=== PATIENT | female | born 1950 | race Hispanic/Latino ===

== ENCOUNTER → 2019-08-27 | Outpatient (CLI) | payer MEDICARE ==
[~2019-08-27] MED LIST: ENALAPRIL MALEA10 MG PO; IOPAMIDOL 370 MG/ML 200 ML INFUS..BTL INJ ONE; PROAIR HFA8.5 G1; SODIUM CHLORIDE 0.9% 50ML 50 ML ONE; Z.0.ADVAIR 250-501 E IH; Z.0.COREG6.25 MG PO; Z.0.GABAPENTIN300 MG PO; Z.0.NEXIUM40 MG PO; Z.0.PRAVASTATIN SOD4 PO
[2019-08-27 10:24] LABS: BLOOD UREA NITROGEN 9 mg/dL (7-26); BUN/CREATININE RATIO 12 (6-25); CREATININE, SERUM 0.75 mg/dL (0.57-1.11); EST GLOMERULAR FILTRATION RATE > 60 ML/MIN (60-)
--- NOTE | 2019-08-27 11:16 | Diagnostic Imaging Report ---
EXAM: CT Chest WITH intravenous contrast 08/27/2019 9:43 AM INDICATION: Shortness of breath, chest pain COMPARISON: Chest radiograph of 10/26/2011 TECHNIQUE: Chest was scanned utilizing a multidetector helical scanner from the lung apex through the level of the adrenal glands after administration of IV contrast. Coronal and sagittal reformations were obtained. Routine protocol was performed. IV CONTRAST: 100mL Isovue 370 RADIATION DOSE: Total DLP: 504 mGy*cm. Dose modulation, iterative reconstruction, and/or weight based adjustment of the mA/kV was utilized to reduce the radiation dose to as low as reasonably achievable. COMPLICATIONS: None FINDINGS: LINES/ TUBES: None. LUNGS AND AIRWAYS: The central airways are patent. No focal consolidation. No pulmonary edema. Airways are normal. PLEURA: The pleural spaces are clear. HEART AND MEDIASTINUM: The thyroid gland is normal. No supraclavicular, axillary, mediastinal, or hilar lymphadenopathy. The heart is not enlarged. No pericardial effusion. Mild scattered atherosclerotic calcifications of the aorta. No central pulmonary embolism. UPPER ABDOMEN: Hepatic dome cyst. Small sliding hiatal hernia. Mild diverticulosis. No acute findings in the upper abdomen. BONES: No acute osseous injury. No suspicious lytic or blastic lesions. SOFT TISSUES: Unremarkable. IMPRESSION: No acute cardiopulmonary process. Signed by: Karin Padgett MD on 08/27/2019 11:12 AM
== END ==
LOC: CT 09:34
PROVIDERS: ATTEND Internal Medicine Critical Care Medicine
DX: J98.11 Atelectasis (principal); R05 Cough; I10 Essential (primary) hypertension
CPT/HCPCS: 36415; 71260; 82565; 84520; Q9967

== ENCOUNTER 2019-09-24 11:42 | Inpatient (IN) | payer MEDICARE ==
[~2019-09-24] VITALS: Ht 154.9 cm; Wt 81.6 kg
[~2019-09-24 11:42] MED LIST changes: -IOPAMIDOL 370 MG/ML 200 ML INFUS..BTL INJ ONE; -SODIUM CHLORIDE 0.9% 50ML 50 ML ONE
--- OUTSIDE RECORDS SUMMARY | 2019-09-24 11:45 | XMS REPORT ---
Author Author [facility] Address Unknown Phone Unavailable Care Team Providers Care Senior Restaurant Manager Name Role Phone KAREN CHERY Unavailable Unavailable Payers Payer Name Policy Type Policy Number Effective Date Expiration Date Problems This patient has no known problems. Allergies, Adverse Reactions, Alerts Allergy Name Allergy Type Status Severity Reaction(s) Onset Date Inactive Date Treating Clinician Comments codeine DA Active U 2019-06-27 00:00:00 codeine DA Active U 2018-10-25 00:00:00 codeine DA Active U 2018-06-30 00:00:00 Medications This patient has no known medications. Results Test Description Test Time Test Comments Text Results Atomic Results Result Comments CT CHEST W 2019-08-27 11:08:00 [facility] [address] [place], [place] [address] Patient Name: RHONA FITCH MR #: [id number] : 1950 Age/Sex: 69/F Req #: [id number] Adm Physician: Ordered by: KAREN CHERY MD Report #: [id number] Location: [place] Room/Bed: Procedure: [id number] CT/CT CHEST W Exam Date: 08/27/19 Exam Time: 1042 REPORT STATUS: Signed EXAM: CT Chest WITH intravenous contrast 08/27/2019 9:43 AM INDICATI ON: Shortness of breath, chest pain COMPARISON: Chest radiograph of 10/26/2011 TECHNIQUE: Chest was scanned utilizing a multidetector helical scanner from the lung apex through the level of the adrenal glands after administration of IV contrast. Coronal and sagittal reformations were obtained. Routine protocol was performed. IV CONTRAST: 100mL Isovue 370 RADIATION DOSE: Total DLP: 504 mGy*cm. Dose modulation, iterative reconstruction, and/or weight based adjustment of the mA/kV was utilized to reduce the radiation dose to as low as reasonably achievable. COMPLICATIONS: None FINDINGS: LINES/ TUBES: None. LUNGS AND AIRWAYS: The central airways are patent. No focal consolidation. No pulmonary edema. Airways are normal. PLEURA: The pleural spaces are clear. HEART AND MEDIASTINUM: The thyroid gland is normal. No supraclavicular, axillary, mediastinal, or hilar lymphadenopathy. The heart is not enlarged. No pericardial effusion. Mild scattered atherosclerotic calcifications of the aorta. No central pulmonary embolism. UPPER ABDOMEN: Hepatic dome cyst. Small sliding hiatal hernia. Mild diverticulosis. No acute findings in the upper abdomen. BONES: No acute osseous injury. No suspicious lytic or blastic lesions. SOFT TISSUES: Unremarkable. IMPRESSION: No acute cardiopulmonary process. Signed by: Narda Nixon MD on 08/27/2019 11:12 AM Dictated By: NARDA NIXON MD 11 Transcribed By: TRACIE on 08/27/191111 COPY TO: KAREN CHERY MD B-TYPE NATRIURETIC PEPTIDE 2019-06-27 13:18:00 B-TYPE NATRIURETIC PEPTIDE (test code=BNP) 68.87 pgram/mL 0-100 BASIC METABOLIC [id number] 12:59:00* Test Item Value Reference Range Comments SODIUM (test code=NA) 131 mmol/L 136-145 POTASSIUM (test code=K) 3.9 mmol/L 3.5-5.1 CHLORIDE (test code=CL) 99.0 mmol/L 98-107 CARBON DIOXIDE (test code=CO2) 24.0 mmol/L 21-32 ANION GAP (test code=GAP) 11.9 10-20 GLUCOSE (test code=GLU) 118 mg/dL 74-106 BLOOD UREA NITROGEN (test code=BUN) 6 mg/dL 7-18 GLOMERULAR FILTRATION RATE (test code=GFR) > 60 mL/min >=60 Estimated GFR by using Modified MDRD formula.Chronic kidney disease is defined as either kidney damageor GFR <60 mL/min/1.73 m2 for >3 months. CREATININE (test code=CREAT) 0.60 mg/dL 0.55-1.02 Note change in reference range due to change in reagent. BUN/CREATININE RATIO (test code=BUN/CREA) 10.0 10-20 CALCIUM (test code=CA) 9.0 mg/dL 8.5-10.1 [id number] 12:59:00* Test Item Value Reference Range Comments TROPONIN-I (test code=TROPI) <0.015 ng/mL 0-0.045 BASIC METABOLIC [id number] 12:48:00* Test Item Value Reference Range Comments SODIUM (test code=NA) 131 mmol/L 136-145 POTASSIUM (test code=K) 3.9 mmol/L 3.5-5.1 CHLORIDE (test code=CL) 99.0 mmol/L 98-107 CARBON DIOXIDE (test code=CO2) mmol/L 21-32 ANION GAP (test code=GAP) 10-20 GLUCOSE (test code=GLU) mg/dL 74-106 BLOOD UREA NITROGEN (test code=BUN) mg/dL 7-18 GLOMERULAR FILTRATION RATE (test code=GFR) mL/min >=60 CREATININE (test code=CREAT) mg/dL 0.55-1.02 BUN/CREATININE RATIO (test code=BUN/CREA) 10-20 CALCIUM (test code=CA) mg/dL 8.5-10.1 [id number] 12:48:00* Test Item Value Reference Range Comments TROPONIN-I (test code=TROPI) ng/mL 0-0.045 CBC W/O [id number] 12:48:00* Test Item Value Reference Range Comments WHITE BLOOD CELL (test code=WBC) 5.0 K/mm3 4.5-12.5 RED BLOOD CELL (test code=RBC) 4.58 mill/mm3 3.7-5.2 HEMOGLOBIN (test code=HGB) 12.3 gram/dL 11.5-15.5 HEMATOCRIT (test code=HCT) 38.2 % 36.0-46.0 MEAN CELL VOLUME (test code=MCV) 83.4 fL 80-98 MEAN CELL HGB (test code=MCH) 26.9 picogram 27.0-33.0 MEAN CELL HGB CONCETRATION (test code=MCHC) 32.2 gram/dL 33.0-36.0 RED CELL DISTRIBUTION WIDTH (test code=RDW) 13.8 % 11.6-16.2 PLATELET COUNT (test code=PLT) 175 K/mm3 150-450 MEAN PLATELET VOLUME (test code=MPV) 10.9 fL 6.7-11.0 - XR CHEST 1 [id number] 12:02:00 FAX: Froylan Lyons DO Juda: B St: REG Name: RHONA ELAM [facility] : [birth year] Age/S: 69/F [address] [facility] Unit #: [id number] Loc: [place] [address] Phys: Froylan Lyons DO Acct: [id number] Dis Date: Status: REG ER PHONE #: [phone] Exam Date: 06/27/2019 1120 FAX #: [phone] Reason: Shortness of Breath EXAMS: CPT CODE: [id number] XR CHEST 1 V 96024 EXAM: Chest x-ray, one view; INFORMATION: Shortness of breath and cough; IMPRESSION: 1. No evidence of pulmonary infiltrates or other signs of active cardiopulmonary disease. 2. No change compared with a study from October 25, 2018; aortic calcifications. Location code: [facility] at 1202 Reported and signed by: Luis Gabriel M.D. CC: Froylan Lyons DO Technologist: BIMAL CORBETT RT (R) Trnscrd Date/Time/By: 06/27/2019 (1202) : By: morgan BAHENAGRW Orig Print D/T: S: 06/27/2019 (1575) P AGE 2 Signed Report GLUBED 2018-10-26 10:20:00* Test Item Value Reference Range Comments GLUBED (test code=GLUBED) 92 mg/dL 74-106 Performed by certified marine service operator at [facility] BASIC METABOLIC [id number] 06:45:00* Test Item Value Reference Range Comments SODIUM (test code=NA) 133 mmol/L 136-145 POTASSIUM (test code=K) 3.9 mmol/L 3.5-5.1 CHLORIDE (test code=CL) 102.0 mmol/L 98-107 CARBON DIOXIDE (test code=CO2) 24.0 mmol/L 21-32 ANION GAP (test code=GAP) 10.9 10-20 GLUCOSE (test code=GLU) 93 mg/dL 74-106 BLOOD UREA NITROGEN (test code=BUN) 10 mg/dL 7-18 GLOMERULAR FILTRATION RATE (test code=GFR) > 60 mL/min >=60 Estimated GFR by using Modified MDRD formula.Chronic kidney disease is defined as either kidney damageor GFR <60 mL/min/1.73 m2 for >3 months. CREATININE (test code=CREAT) 0.60 mg/dL 0.55-1.02 Note change in reference range due to change in reagent. BUN/CREATININE RATIO (test code=BUN/CREA) 16.7 10-20 CALCIUM (test code=CA) 8.0 mg/dL 8.5-10.1 BASIC METABOLIC [id number] 06:42:00* Test Item Value Reference Range Comments SODIUM (test code=NA) 133 mmol/L 136-145 POTASSIUM (test code=K) 3.9 mmol/L 3.5-5.1 CHLORIDE (test code=CL) 102.0 mmol/L 98-107 CARBON DIOXIDE (test code=CO2) mmol/L 21-32 ANION GAP (test code=GAP) 10-20 GLUCOSE (test code=GLU) mg/dL 74-106 BLOOD UREA NITROGEN (test code=BUN) mg/dL 7-18 GLOMERULAR FILTRATION RATE (test code=GFR) mL/min >=60 CREATININE (test code=CREAT) mg/dL 0.55-1.02 BUN/CREATININE RATIO (test code=BUN/CREA) 10-20 CALCIUM (test code=CA) mg/dL 8.5-10.1 CBC W/AUTO [id number] 06:09:00* Test Item Value Reference Range Comments WHITE BLOOD CELL (test code=WBC) 6.8 K/mm3 4.5-12.5 RED BLOOD CELL (test code=RBC) 3.81 mill/mm3 3.7-5.2 HEMOGLOBIN (test code=HGB) 10.4 gram/dL 11.5-15.5 HEMATOCRIT (test code=HCT) 31.6 % 36.0-46.0 MEAN CELL VOLUME (test code=MCV) 82.9 fL 80-98 MEAN CELL HGB (test code=MCH) 27.3 picogram 27.0-33.0 MEAN CELL HGB CONCETRATION (test code=MCHC) 32.9 gram/dL 33.0-36.0 RED CELL DISTRIBUTION WIDTH (test code=RDW) 13.4 % 11.6-16.2 RED CELL DISTRIBUTION WIDTH SD (test code=RDW-SD) 40.7 fL 37.0-51.0 PLATELET COUNT (test code=PLT) 169 K/mm3 150-450 MEAN PLATELET VOLUME (test code=MPV) 11.2 fL 6.7-11.0 NEUTROPHIL % (test code=NT%) 59.2 % 39.0-69.0 IMMATURE GRANULOCYTE % (test code=IG%) 0.1 % 0.0-5.0 LYMPHOCYTE % (test code=LY%) 27.3 % 25.0-55.0 MONOCYTE % (test code=MO%) 12.4 % 0.0-10.0 EOSINOPHIL % (test code=EO%) 0.4 % 0.0-5.0 BASOPHIL % (test code=BA%) 0.6 % 0.0-1.0 NUCLEATED RBC % (test code=NRBC%) 0.0 % 0-0 NEUTROPHIL # (test code=NT#) 4.04 K/mm3 1.8-7.7 IMMATURE GRANULOCYTE # (test code=IG#) 0.01 x10 3/uL 0-0.03 LYMPHOCYTE # (test code=LY#) 1.87 K/mm3 1.0-5.0 MONOCYTE # (test code=MO#) 0.85 K/mm3 0-0.8 EOSINOPHIL # (test code=EO#) 0.03 K/mm3 0.0-0.5 BASOPHIL # (test code=BA#) 0.04 K/mm3 0.0-0.2 NUCLEATED RBC # (test code=NRBC#) 0.00 K/mm3 0.0-0.1 [id number] 20:24:00* Test Item Value Reference Range Comments GLUBED (test code=GLUBED) 134 mg/dL 74-106 Performed by certified marine service operator at [facility] [id number] 16:32:00* Test Item Value Reference Range Comments GLUBED (test code=GLUBED) 88 mg/dL 74-106 Performed by certified marine service operator at [facility] [id number] 11:10:00* Test Item Value Reference Range Comments GLUBED (test code=GLUBED) 250 mg/dL 74-106 Performed by certified marine service operator at [facility] [id number] 07:52:00* Test Item Value Reference Range Comments GLUBED (test code=GLUBED) 71 mg/dL 74-106 Performed by certified marine service operator at [facility] [id number] 07:38:00* Test Item Value Reference Range Comments GLUBED (test code=GLUBED) 188 mg/dL 74-106 Performed by certified marine service operator at [facility] B-TYPE NATRIURETIC [id number] 03:34:00* Test Item Value Reference Range Comments B-TYPE NATRIURETIC PEPTIDE (test code=BNP) 69.42 pgram/mL 0-100 URINALYSIS [id number] 02:49:00* Test Item Value Reference Range Comments UA COLOR (test code=COLU) Light-Yellow YELLOW UA APPEARANCE (test code=APPU) CLEAR CLEAR UA GLUCOSE DIPSTICK (test code=DGLUU) NEGATIVE mg/dL NEGATIVE UA BILIRUBIN DIPSTICK (test code=BILU) NEGATIVE mg/dL NEGATIVE UA KETONE DIPSTICK (test code=KETU) NEGATIVE mg/dL NEGATIVE UA SPECIFIC GRAVITY (test code=SGU) 1.012 1.001-1.035 UA BLOOD DIPSTICK (test code=MELANI) Negative mg/dL NEGATIVE UA PH DIPSTICK (test code=DARÍO) 8.0 5.0-8.0 UA PROTEIN DIPSTICK (test code=PROU) NEGATIVE mg/dL NEGATIVE UA UROBILINIOGEN DIPSTICK (test code=URO) Normal mg/dL NEGATIVE UA NITRITE DIPSTICK (test code=ABEL) NEGATIVE NEGATIVE UA LEUKOCYTE ESTERASE W REFLEX (test code=LEUUR) NEGATIVE Tomi/uL NEGATIVE UA WBC (test code=WBCU) 0-5 per HPF 0-5 UA RBC (test code=RBCU) 0-2 #/HPF 0-5 UA EPITHELIAL CELLS (test code=EPIU) FEW per HPF FEW UA BACTERIA (test code=BACU) FEW #/HPF NONE UA HYALINE CAST (test code=HYALU) 0-2 #/LPF 0-5 UA MUCUS (test code=MUCU) FEW #/LPF FEW Urine Source? Clean CatchBASIC METABOLIC [id number] 02:37:00* Test Item Value Reference Range Comments SODIUM (test code=NA) 126 mmol/L 136-145 POTASSIUM (test code=K) 3.6 mmol/L 3.5-5.1 CHLORIDE (test code=CL) 92.0 mmol/L 98-107 CARBON DIOXIDE (test code=CO2) 25.0 mmol/L 21-32 ANION GAP (test code=GAP) 12.6 10-20 GLUCOSE (test code=GLU) 108 mg/dL 74-106 BLOOD UREA NITROGEN (test code=BUN) 7 mg/dL 7-18 GLOMERULAR FILTRATION RATE (test code=GFR) > 60 mL/min >=60 Estimated GFR by using Modified MDRD formula.Chronic kidney disease is defined as either kidney damageor GFR <60 mL/min/1.73 m2 for >3 months. CREATININE (test code=CREAT) 0.60 mg/dL 0.55-1.02 Note change in reference range due to change in reagent. BUN/CREATININE RATIO (test code=BUN/CREA) 11.7 10-20 CALCIUM (test code=CA) 8.8 mg/dL 8.5-10.1 HEPATIC FUNCTION [id number] 02:37:00* Test Item Value Reference Range Comments TOTAL PROTEIN (test code=PROT) 7.8 gram/dL 6.4-8.2 ALBUMIN (test code=ALB) 3.8 g/dL 3.4-5.0 GLOBULIN (test code=GLOB) 4.0 gram/dL 2.7-4.2 ALBUMIN/GLOBULIN RATIO (test code=A/G) 1.0 0.75-1.50 BILIRUBIN TOTAL (test code=BILT) 0.40 mg/dL 0.0-1.0 BILIRUBIN DIRECT (test code=BILD) 0.16 mg/dL 0.0-0.20 SGOT/AST (test code=AST) 23 IUnit/L 15-37 SGPT/ALT (test code=ALT) 33 IUnit/L 12-78 ALKALINE PHOSPHATASE TOTAL (test code=ALKP) 118 IUnit/L 45-117 Note change in reference range due to change in reagent. [id number] 02:37:00* Test Item Value Reference Range Comments LIPASE (test code=LIP) 131 U/L 73.0-393.0 [id number] 02:37:00* Test Item Value Reference Range Comments MAGNESIUM (test code=MAG) 1.8 mg/dL 1.8-2.4 [id number] 02:37:00* Test Item Value Reference Range Comments TROPONIN-I (test code=TROPI) <0.015 ng/mL 0-0.045 LACTIC [id number] 02:37:00* Test Item Value Reference Range Comments LACTIC ACID (test code=LACT) 1.0 mmol/L 0.4-1.9 PROCALCITONIN (PCT)2018-10-25 02:37:00* Test Item Value Reference Range Comments PROCALCITONIN (PCT) (test code=PROCAL) < 0.05 ng/ml Concentration Interpretation (ng/mL) <0.51 Sepsis is not likely. Local bacterial infection is possible. (LOW RISK for progression to Sepsis) 0.51 - 2.00 Sepsis is possible, but other conditions are known to elevate PCT as well. (MODERATE RISK for progression to Sepsis) > 2.00 Sepsis is likely, unless other causes are known. (HIGH RISK for progression to Severe Sepsis or Septic Shock) 10.00 High likelihood of Severe Sepsis or Septic or higher Shock. *Increased PCT levels may not always be related to systemic bacterial infection.*Low PCT levels do not automatically exclude the presence of bacterial infection.*All results should be interpreted taking into account the patients history. - XR CHEST 1 [id number] 02:19:00 Juda: B St: REG Name: RHONA ELAM [facility] : [birth year] Age/S: 68/F [address] [facility] Unit #: [id number] Loc: [place] [address] Phys: Tish Cortes MD Acct: [id number] Dis Date: Status: REG ER PHONE #: [phone] Exam Date: 10/25/2018 0153 FAX #: [phone] Reason: CHEST PAIN EXAMS: CPT CODE: [id number] XR CHEST 1 V 15982 EXAM: - XR CHEST 1 V HISTORY: Chest pain. COMPARISON: December 22, 2009. FIN DINGS: Single AP view of the chest is provided. Heart size a nd vascularity are within normal limits. The lungs are clear of focal con solidation. No effusion, pneumothorax, or acute osseous abnormality. There is no significant change compared to prior exam. IMPRESS ION: No radiographic evidence of acute cardiopulmonary process. at 0219 Reported and signed by: Vasiliy Rubio MD CC: Technologist: Joya Kern Trnscrd Date/Time/By: 10/25/2018 (218) : By: [email or web address] Orig Print D/T: S: 10/25/2018 (0224) PAGE 1 Signed Report CBC W/O [id number] 02:12:00* Test Item Value Reference Range Comments WHITE BLOOD CELL (test code=WBC) 5.7 K/mm3 4.5-12.5 RED BLOOD CELL (test code=RBC) 4.39 mill/mm3 3.7-5.2 HEMOGLOBIN (test code=HGB) 12.0 gram/dL 11.5-15.5 HEMATOCRIT (test code=HCT) 36.1 % 36.0-46.0 MEAN CELL VOLUME (test code=MCV) 82.2 fL 80-98 MEAN CELL HGB (test code=MCH) 27.3 picogram 27.0-33.0 MEAN CELL HGB CONCETRATION (test code=MCHC) 33.2 gram/dL 33.0-36.0 RED CELL DISTRIBUTION WIDTH (test code=RDW) 12.9 % 11.6-16.2 PLATELET COUNT (test code=PLT) 185 K/mm3 150-450 MEAN PLATELET VOLUME (test code=MPV) 11.8 fL 6.7-11.0 CBC W/O [id number] 02:11:00* Test Item Value Reference Range Comments WHITE BLOOD CELL (test code=WBC) K/mm3 4.5-12.5 RED BLOOD CELL (test code=RBC) mill/mm3 3.7-5.2 HEMOGLOBIN (test code=HGB) 12.0 gram/dL 11.5-15.5 HEMATOCRIT (test code=HCT) 36.1 % 36.0-46.0 MEAN CELL VOLUME (test code=MCV) fL 80-98 MEAN CELL HGB (test code=MCH) picogram 27.0-33.0 MEAN CELL HGB CONCETRATION (test code=MCHC) gram/dL 33.0-36.0 RED CELL DISTRIBUTION WIDTH (test code=RDW) % 11.6-16.2 PLATELET COUNT (test code=PLT) K/mm3 150-450 MEAN PLATELET VOLUME (test code=MPV) fL 6.7-11.0 [id number] 13:48:00 RUN DATE: 07/03/18 [place] - Lab PAGE 1 RUN TIME: 1348 Specimen Inqui ry RUN USER: INTERFACE PATIENT: RHONA FITCH ACCT #: [id number] LOC: G U #: [id number] AGE/SX: 68/F ROOM: RE07/01/18[facility] DR: Boni Boo MD : 52 BED: DIS: STATUS: JIGNESH FUNG TLOC: SPEC #: [id number] RECD: 07/02/18 STATUS: AYAZ REQ #: [id number] CARLOS: 07/01/18- [facility] DR: Boni Boo MD ENTERED: 07/02/18 SP TYPE: STOMACH OTHR DR: Jesse Pedersen MD ORDERED: GROSS COPIES TO: Boni Boo MD [address] [address] Jesse Pedersen MD [address] [place] [address] PROCEDURES: GROSS (07/03/18-112) TISSU ES: 1. ANTRAL BIOPSY - H-PYLORI 2. BODY BIOPSY OF STOMACH CLINICAL HISTORY COLLECTION DATE: 07/01/18 [facility], VOMITING FINAL DIAGNOSIS Gastric antrum, biopsy: COMPATIBLE WITH MILD REACTIVE GASTROPATHY NO AREAS OF MUCOSAL EROSION/ULCERATION NEGATIVE FOR IN TESTINAL METAPLASIA NEGATIVE FOR HELICOBACTER ORGANISMS NEGATIVE F OR MALIGNANCY Gastric body, biopsy: MILD CHRONIC GASTRITIS WITHOUT ACTIVITY NEGATIVE FOR INTESTINAL METAPLASIA NEGATIVE FOR HELICOBAC TER ORGANISMS NEGATIVE FOR MALIGNANCY RRB/sm D [phone] CONTINUED ON NEXT PAGE R UN DATE: 07/03/18 [place] [facility] PAGE 2 RUN TIME: 1348 Specimen Inquiry RUN USER: INTERFACE SPEC #: [id number] PATIENT: RHONA FITCH #[id number] (Continued) MACROSCOPIC The first specimen is received in formalin, labeled with the patient's name, identified as "antrum bx", and consists of chawla biopsy tissue measuring 0.2 cm in diameter , submitted as (1) for H E and Giemsa stains. The second specimen is recei toni in formalin, labeled with the patient's name, identified as "body of stoma ch", and consists of chawla biopsy tissue measuring 0.25 cm, submitted as (2) for H E and Giemsa stains. GROSS PERFORMED AT [facility] [address] [place] [address] ([phone] MICROSCOPIC MICROSCOPIC PERFORMED AT [facility] All of the stains, including any controls performed, stain appropriately. [address] [address] (p)[phone] PERFORMING SITE Diagnosis performed at: [facility] MAILE Estrada [address] [place], [place] [id number] - Signed SIGNATURE ON FILE Reynaldo Morris 0 07/03/18 1348 END O F REPORT
[2019-09-24] MEDS ORDERED: DIATRIZOATE MEGL/DIATRIZOA SOD 30 ML BTL PO ONE (12:57)
[2019-09-24] MEDS ORDERED: ONDANSETRON HCL INJ 2MG/ML 2ML 2 MG/ML VIAL IV STA ×2 (13:40→15:07)
[2019-09-24 13:44] LABS: BASOPHILS % 0.7 % (0.0-1.0); EOSINOPHILS % 0.7 % (0.0-6.0); HEMATOCRIT 39.3 % (34.2-44.1); HEMOGLOBIN 13.5 g/dL (12.0-16.0); LYMPHOCYTES # (AUTO) 0.9 (1.0-3.2); LYMPHOCYTES % 21.7 % (18.0-39.1); MEAN CORPUSCULAR HEMOGLOBIN 27.8 pg (28-32); MEAN CORPUSCULAR HGB CONC 34.4 g/dL (31-35); MONOCYTES # (AUTO) 0.6 (0.2-0.8); MONOCYTES % 12.8 % (4.4-11.3); NEUTROPHILS # (AUTO) 2.7 (2.1-6.9); NEUTROPHILS % 63.9 % (38.7-80.0); PLATELET COUNT 194 x10e3/uL (140-360); RED BLOOD COUNT 4.85 x10e6/uL (3.6-5.1); RED CELL DISTRIBUTION WIDTH 14.3 % (11.7-14.4)
[2019-09-24] MEDS ORDERED: MORPHINE SULFATE INJ 4 MG/ML INJ 1ML IV ONE (13:45)
[2019-09-24 14:05] LABS: ALANINE AMINOTRANSFERASE 422 IU/L (0-55); ALBUMIN 4.4 g/dL (3.5-5.0); ALBUMIN/GLOBULIN RATIO 1.2 (0.8-2.0); ALKALINE PHOSPHATASE 150 IU/L (40-150); ANION GAP 13.5 mmol/L (8-16); BLOOD UREA NITROGEN 5 mg/dL (7-26); BUN/CREATININE RATIO 6 (6-25); CALCIUM 9.3 mg/dL (8.4-10.2); CARBON DIOXIDE 24 mmol/L (22-29); CHLORIDE 90 mmol/L (98-107); CREATININE, SERUM 0.77 mg/dL (0.57-1.11); EST GLOMERULAR FILTRATION RATE > 60 ML/MIN (60-); GLUCOSE 100 mg/dL (74-118); POTASSIUM 3.5 mmol/L (3.5-5.1); SODIUM 124 mmol/L (136-145)
[2019-09-24 14:06] LABS: CLARITY,URINE CLEAR (CLEAR); COLOR,URINE YELLOW (YELLOW)
[2019-09-24 14:07] LABS: BILIRUBIN,URINE NEGATIVE (NEGATIVE); KETONES,URINE 2+ (NEGATIVE); LEUKOCYTE ESTERASE ,URINE NEGATIVE (NEGATIVE); NITRITE,URINE NEGATIVE (NEGATIVE); PROTEIN,URINE DIPSTICK NEGATIVE (NEGATIVE); URINE UROBILINOGEN 0.2 mg/dL (0.2 - 1)
[2019-09-24 14:15] LABS: BACTERIA,URINE FEW /HPF; EPITHELIAL CELLS,URINE FEW /LPF
--- NOTE | 2019-09-24 16:25 | Diagnostic Imaging Report ---
CT of the chest, abdomen and pelvis, with contrast. History: Abdominal pain, shortness of breath. Comparison: CT chest with contrast from 08/27/2019. Technique: Multidetector CT scanning of the chest, abdomen and pelvis was performed after intravenous and oral administration of contrast. Coronal and sagittal multiplanar reformations were obtained. RADIATION DOSE: Total DLP: 930.43 mGy*cm Dose modulation, iterative reconstruction, and/or weight based adjustment of the mA/kV was utilized to reduce the radiation dose to as low as reasonably achievable. FINDINGS: The thyroid and remaining visualized structures within the base of the neck demonstrate no significant abnormalities. The thoracic aorta is normal course and caliber with mild atherosclerotic calcifications. The heart is not enlarged. No abnormal pericardial fluid is present. There is no abnormal axillary, mediastinal, or hilar lymph node enlargement. The trachea and proximal airways are patent. Examination of the lungs demonstrate no evidence for consolidation, pneumothorax, mass, suspicious nodule, or pleural effusion. The liver is normal in size and attenuation. A stable cyst is identified within the hepatic dome. The gallbladder is unremarkable. There is no biliary ductal dilatation. The stomach, spleen, pancreas, and bilateral adrenal glands are unremarkable. The kidneys are normal in size and location and enhance symmetrically. Mild cortical scarring noted along the right kidney. There is no evidence for hydronephrosis. No ureteral dilatation or stone is appreciated. There is a large cystic structure identified within the pelvis measuring 9.9 x 13.1 x 10.3 cm. An apparent enhancing nodule is present along the left posterior inferior wall of this cystic lesion. This lesion abuts the urinary bladder and impresses upon the urinary bladder. Lesion also abuts the bilateral adnexa. The abdominal aorta is normal course and caliber with mild left are sclerotic calcifications. The IVC is unremarkable. The visualized loops of small and large bowel demonstrate no evidence of obstruction or inflammation. There is a small fat-containing umbilical hernia present. The appendix is visualized and appears unremarkable. Scattered diverticula are noted within the colon without evidence for acute diverticulitis. There is no ascites or intraperitoneal free air. No abnormally enlarged lymph nodes are identified within the abdomen or pelvis. The osseous structures to the straight no evidence for acute fracture or destructive process. The extra peritoneal soft tissues are unremarkable. IMPRESSION: Large cystic mass identified within the pelvis measuring up to 13.1 cm containing a enhancing nodule as detailed above. This lesion abuts the uterus, adnexa and the urinary bladder. Recommend VIRTUAL CLASSROOM MANAGER/surgical consultation. Alternatively, pelvic MRI may provide further characterization. Diverticulosis without evidence for acute diverticulitis. No acute intrathoracic process identified. Signed by: Dr. Emile Aguirre MD on 09/24/2019 4:21 PM
[2019-09-24] MEDS ORDERED: SODIUM CHLORIDE 0.9% 1000ML 1,000 ML IV STA (16:41)
[2019-09-24] MEDS ORDERED: KETOROLAC TROMETHAMINE 30 MG/ML VIAL IV STA (16:41)
[2019-09-24] MEDS ORDERED: METOCLOPRAMIDE HCL 10 MG/2ML VIAL ONE (18:42)
[2019-09-24] MEDS ORDERED: SODIUM CHLORIDE 0.9% 50ML 50 ML ONE (18:44)
[2019-09-24] MEDS ORDERED: IOPAMIDOL 370 MG/ML 200 ML INFUS..BTL INJ ONE (18:44)
[2019-09-24] MEDS ORDERED: METOCLOPRAMIDE HCL 10 MG/2ML VIAL IM ONE (18:45)
--- NOTE | 2019-09-24 18:45 | NUR ---
report given to Richard NICHOLSON
[2019-09-24] MEDS ORDERED: METFORMIN HCL500 MG PO (19:04)
[2019-09-24] MEDS ORDERED: OMEPRAZOLE40 MG PO (19:04)
[2019-09-24] MEDS: PANTOPRAZOLE 40 MG 10ML VIAL IV SCH (19:55)
[2019-09-24] MEDS: ONDANSETRON HCL INJ 2MG/ML 2ML 2 MG/ML VIAL IV PRN (19:55)
[2019-09-24] MEDS: SODIUM CHLORIDE 0.9% 1000ML 1,000 ML IV SCH (19:55)
[2019-09-24] MEDS ORDERED: SODIUM CHLORIDE 0.9% 1000ML 1,000 ML ONE (19:58)
[2019-09-24] MEDS ORDERED: PANTOPRAZOLE 40 MG 10ML VIAL ONE (19:59)
[2019-09-24] MEDS ORDERED: ONDANSETRON HCL INJ 2MG/ML 2ML 2 MG/ML VIAL ONE (20:00)
--- NOTE | 2019-09-24 20:46 | NUR ---
report to pam guan. pt placed on telemetry box #22 by sundeep stewart.
[2019-09-24 22:15] VITALS: BP 135/70
[2019-09-24 22:31] VITALS: BP 135/70
[2019-09-25 05:21] LABS: BASOPHILS % 0.4 % (0.0-1.0); EOSINOPHILS % 0.4 % (0.0-6.0); HEMATOCRIT 33.4 % (34.2-44.1); HEMOGLOBIN 11.5 g/dL (12.0-16.0); LYMPHOCYTES # (AUTO) 1.2 (1.0-3.2); LYMPHOCYTES % 25.6 % (18.0-39.1); MEAN CORPUSCULAR HEMOGLOBIN 27.7 pg (28-32); MEAN CORPUSCULAR HGB CONC 34.4 g/dL (31-35); MEAN CORPUSCULAR VOLUME 80.5 fL (81-99); MONOCYTES # (AUTO) 0.8 (0.2-0.8); MONOCYTES % 16.9 % (4.4-11.3); NEUTROPHILS # (AUTO) 2.7 (2.1-6.9); NEUTROPHILS % 56.5 % (38.7-80.0); PLATELET COUNT 185 x10e3/uL (140-360); RED BLOOD COUNT 4.15 x10e6/uL (3.6-5.1); RED CELL DISTRIBUTION WIDTH 14.2 % (11.7-14.4)
[2019-09-25 05:45] LABS: ANION GAP 10.3 mmol/L (8-16); BLOOD UREA NITROGEN 5 mg/dL (7-26); BUN/CREATININE RATIO 7 (6-25); CALCIUM 8.3 mg/dL (8.4-10.2); CARBON DIOXIDE 24 mmol/L (22-29); CHLORIDE 96 mmol/L (98-107); CREATININE, SERUM 0.68 mg/dL (0.57-1.11); EST GLOMERULAR FILTRATION RATE > 60 ML/MIN (60-); GLUCOSE 99 mg/dL (74-118); POTASSIUM 4.3 mmol/L (3.5-5.1); SODIUM 126 mmol/L (136-145)
[2019-09-25] MEDS: SODIUM CHLORIDE 0.9% 1000ML 1,000 ML IV SCH ×2 (06:29→19:11)
--- NOTE | 2019-09-25 07:00 | NUR ---
RECEIVED REPORT, WALKING ROUNDS PERFORMED, PT RESTING QUIETLY IN BED, NO APPARENT DISTRESS AT THIS TIME
[2019-09-25 08:24] VITALS: BP 130/62
[2019-09-25 08:43] VITALS: BP 130/62
[2019-09-25] MEDS: PANTOPRAZOLE 40 MG 10ML VIAL IV SCH (09:06)
--- NOTE | 2019-09-25 10:10 | NUR ---
Pt. expressed no spiritual or emotional concerns at this time. Supervisor provided empathic listening and information on how to reach surety bond agent, if needed. No need to follow at this time. RITIKA TRENT Supervisor Spiritual Care Department O: [phone]
[2019-09-25] MEDS: ONDANSETRON HCL INJ 2MG/ML 2ML 2 MG/ML VIAL IV PRN (11:46)
[2019-09-25] MEDS: ACETAMINOPHEN 325 MG TAB PO PRN (11:46)
[2019-09-25] MEDS ORDERED: GADOBENATE DIMEGLUMINE 1 ML IV ONE (12:18)
[2019-09-25] MEDS ORDERED: SODIUM CHLORIDE 0.9% 100 ML ONE (12:18)
--- NOTE | 2019-09-25 12:49 | History and Physical ---
CHIEF COMPLAINT: This is a 69-year-old female patient presented to the emergency room with a complaint of vomiting, abdominal pain, headache and dizziness. HISTORY OF PRESENT ILLNESS: Ms. Nhung Lloyd is a 69-year-old female patient, who presented to the emergency room with a complaint of dizziness, vomiting, lower abdominal pain, headache, and weakness. The patient was evaluated in the emergency room and the patient was found to have pelvic mass and hyponatremia. ER physician had talked to the Special Effects Designer chief information security officer, and the patient was advised to have outpatient followup plan. The patient was continued to have vomiting and the patient has low sodium. The patient was advised to come back and admitted. ALLERGIES: THE PATIENT IS ALLERGIC TO CODEINE. THE PATIENT HAS A HISTORY OF DIABETES MELLITUS, HYPERTENSION, ANXIETY. PAST MEDICAL HISTORY: Hypertension, diabetes mellitus, anxiety, depression, bronchial asthma. MEDICATIONS: See from the list. SOCIAL HISTORY: Denies smoking. Denies using alcohol. FAMILY HISTORY: Diabetes mellitus, hypertension. REVIEW OF SYSTEMS: A detailed multisystem review of system examination has been done. PHYSICAL EXAMINATION: GENERAL: She is a middle-aged female patient lying in the bed, not in any acute. VITAL SIGNS: Temperature 99.2, pulse rate 61, blood pressure 130/62, respiration rate 22, O2 saturation 98%. HEENT: Normocephalic, atraumatic. No JVD. No lymphadenopathy. LUNGS: Bilateral equal air entry. No rales, no rhonchi. HEART: S1, S2. Regular. No murmur. No gallop. ABDOMEN: Soft. Bowel sounds present. Mild lower abdominal tenderness present. EXTREMITIES: No edema. ADMITTING IMPRESSION AND DIAGNOSES: Hyponatremia, gastroenteritis, pelvic mass, diabetes mellitus, hypertension, bronchial asthma, obesity. PLAN: The patient was admitted with above diagnoses. We will treat patient with IV fluids and the IV Zofran and we will obtain pelvic MRI and also Special Effects Designer consultation and we will correct patient's sodium slowly. Jesse Pedersen MD VMP/MODL /[id number]
--- NOTE | 2019-09-25 13:37 | NUR ---
spoke with dr jamey ring, pt states that she is too claustrophobic to do mri without some medication, order recieved for ativan, pt is being brought back to the room
[2019-09-25] MEDS: LORAZEPAM 1 MG TAB PO PRN (13:49)
[2019-09-25 13:59] VITALS: BP 131/69
--- NOTE | 2019-09-25 15:59 | NUR ---
pt back from MRI, vs stable, pt states that she is a little weak, explained that it could be due to the medication she received for mri, call light within reach
[2019-09-25 16:38] VITALS: BP 143/65
--- NOTE | 2019-09-25 19:28 | NUR ---
received report from day nurse. patient id resting comfortably in bed. bed is in lowest position and call light is within reach. Denies pain or discomfort. will continue to monitor patient.
[2019-09-25 20:00] VITALS: BP 105/61
[2019-09-25] MEDS: SALMETEROL/FLUTICASONE 250/50 INH SCH (20:50)
[2019-09-25 23:31] VITALS: BP 105/61
[2019-09-26] VITALS (8 sets, daily range): BP systolic 113–141; BP diastolic 60–76
[2019-09-26] MEDS: SODIUM CHLORIDE 0.9% 1000ML 1,000 ML IV SCH (02:21)
[2019-09-26 06:06] LABS: BASOPHILS # (AUTO) 0.1 (0.0-0.1); BASOPHILS % 1.3 % (0.0-1.0); EOSINOPHILS # (AUTO) 0.1 (0.0-0.4); EOSINOPHILS % 1.8 % (0.0-6.0); HEMATOCRIT 36.2 % (34.2-44.1); LYMPHOCYTES # (AUTO) 1.5 (1.0-3.2); LYMPHOCYTES % 37.3 % (18.0-39.1); MEAN CORPUSCULAR HEMOGLOBIN 27.3 pg (28-32); MEAN CORPUSCULAR HGB CONC 33.1 g/dL (31-35); MEAN CORPUSCULAR VOLUME 82.5 fL (81-99); MONOCYTES # (AUTO) 0.7 (0.2-0.8); MONOCYTES % 17.4 % (4.4-11.3); NEUTROPHILS # (AUTO) 1.7 (2.1-6.9); NEUTROPHILS % 41.9 % (38.7-80.0); PLATELET COUNT 189 x10e3/uL (140-360); RED BLOOD COUNT 4.39 x10e6/uL (3.6-5.1); RED CELL DISTRIBUTION WIDTH 15.1 % (11.7-14.4)
[2019-09-26 06:35] LABS: ALANINE AMINOTRANSFERASE 267 IU/L (0-55); ALBUMIN 3.7 g/dL (3.5-5.0); ALBUMIN/GLOBULIN RATIO 1.3 (0.8-2.0); ALKALINE PHOSPHATASE 114 IU/L (40-150); BLOOD UREA NITROGEN < 5 mg/dL (7-26); CALCIUM 8.4 mg/dL (8.4-10.2); CARBON DIOXIDE 23 mmol/L (22-29); CHLORIDE 106 mmol/L (98-107); CREATININE, SERUM 0.63 mg/dL (0.57-1.11); EST GLOMERULAR FILTRATION RATE > 60 ML/MIN (60-); GLUCOSE 93 mg/dL (74-118); SODIUM 135 mmol/L (136-145)
[2019-09-26 06:36] LABS: BUN/CREATININE RATIO 8 (6-25)
--- NOTE | 2019-09-26 07:00 | NUR ---
report received, walking rounds performed, pt resting quietly in bed
[2019-09-26] MEDS: SALMETEROL/FLUTICASONE 250/50 INH SCH ×2 (07:04→21:15)
--- NOTE | 2019-09-26 07:09 | NUR ---
REPORT GIVEN TO DAY NURSE. PATIENT IS RESTING COMFORTABLY IN THE BED. BED IS IN THE LOWEST POSITION AND CALL LIGHT IS WITHIN REACH.
[2019-09-26] MEDS: PANTOPRAZOLE SOD 40 MG TABEC PO SCH (08:44)
[2019-09-26] MEDS: ENALAPRIL MALEATE 10 MG TAB PO SCH (08:44)
--- NOTE | 2019-09-26 16:19 | NUR ---
pt took a shower, iv was wrapped and tele was replaced
[2019-09-26] MEDS ORDERED: ONDANSETRON HCL 4 MG ORAL DISINTEGRATING TAB PO PRN (17:00)
[2019-09-26] MEDS: DOCUSATE SODIUM 100 MG CAP PO PRN (17:07)
[2019-09-26] MEDS ORDERED: DOCUSATE SODIUM 100 MG CAP ONE (17:14)
--- NOTE | 2019-09-26 17:40 | Progress Note ---
DATE: 09/26/2019 Medicine Progress Note I am covering for Dr. Candelaria Pedersen SUBJECTIVE: The patient was admitted for underlying lightheadedness and dizziness found to be hyponatremic. Simultaneously on the CT abdomen and pelvis, found to have a pelvic mass, which SKEIN BANDER was consulted. The patient is currently is still complaining of some dizziness and lightheadedness during my evaluation. SKEIN BANDER came and evaluated the patient, but I do not see his consultation note at this time, but he did tell the nursing staff, the patient can go home, but she is currently not ready at this time. PHYSICAL EXAMINATION: VITAL SIGNS: Temperature is 98.8, pulse 60, respiratory rate is 20, blood pressure 118/72, pulse ox 98% on room air. GENERAL: No acute distress. Alert and oriented x3. Cooperative on examination. HEENT: Head is normocephalic and atraumatic. Eyes; pupils are equal, round, and reactive to light bilaterally. Extraocular movements intact bilaterally. Throat; no evidence of erythema or exudates in the posterior pharynx. She has poor dentition. NECK: Supple. Good range of motion. PULMONARY: Clear to auscultation bilaterally. No wheezing, rales, or rhonchi. No crackles appreciated. CARDIOVASCULAR: Positive S1 and S2. No murmurs, rubs, or gallops appreciated. ABDOMEN: Soft, nondistended, and nontender to palpation. Bowel sounds are present. MUSCULOSKELETAL: Strength is 5/5 throughout. No evidence of any muscle deficits on examination. No weakness appreciated. NEUROLOGIC: Cranial nerves 2 through 12 grossly intact. No evidence of any neurological deficits on exam. SKIN: Intact. Warm to touch. Good cap refill. PSYCHIATRIC: Normal affect and mood. EXTREMITIES: No edema. Good range of motion throughout. LABORATORY FINDINGS: Show white count 3.9, hemoglobin 12, hematocrit 36, platelets of 189. Chemistry; sodium 135, it is up from 126, but the rate was appropriately increased. Potassium 4, chloride 106, bicarb 23, anion gap is 10, BUN is 5, creatinine is 0.63, glucose 93. Her total bilirubin was 0.7, AST 146, ALT 267 has been downtrending, alkaline phosphatase 114, albumin 3.7. CA-125 pending. Urinalysis negative. Microbiology none. IMAGING STUDIES: CT chest, abdomen and pelvis. The only result had stated, the pelvic mass noted. MRI of the pelvis and abdomen are pending final read. IMPRESSION: 1. Lightheadedness, dizziness secondary to hyponatremia. 2. Abdominal pain secondary to pelvic mass. PLAN: At this time, she reports her nausea and vomiting are resolved. Pelvic mass was still pending MRI of the pelvis and abdomen. Wood Router came and saw with the patient and he cleared the patient from his standpoint, but I do not see a note as of yet. Tylenol No.3 was written in the chart. I am still waiting on the read on the MRIs. As for her sodium, it is appropriately corrected. I am going to go ahead and stop the IV fluids. Get a.m. labs. Encourage ambulation. Regular diet. If she does well tomorrow and has been cleared by SKEIN BANDER. Her CA-125 is pending. MD LINWOOD Yun/ZAIN /[id number]
[2019-09-26] MEDS: ACETAMINOPHEN 325 MG TAB PO PRN (22:46)
[2019-09-26] MEDS: ONDANSETRON HCL INJ 2MG/ML 2ML 2 MG/ML VIAL IV PRN (22:46)
[2019-09-27] VITALS (9 sets, daily range): BP systolic 99–148; BP diastolic 56–85
[2019-09-27] MEDS: SALMETEROL/FLUTICASONE 250/50 INH SCH ×2 (06:03→19:50)
[2019-09-27 06:13] LABS: BASOPHILS % 1.1 % (0.0-1.0); EOSINOPHILS # (AUTO) 0.2 (0.0-0.4); EOSINOPHILS % 4.4 % (0.0-6.0); HEMATOCRIT 36.2 % (34.2-44.1); LYMPHOCYTES # (AUTO) 1.4 (1.0-3.2); LYMPHOCYTES % 38.8 % (18.0-39.1); MEAN CORPUSCULAR HEMOGLOBIN 27.5 pg (28-32); MEAN CORPUSCULAR HGB CONC 33.1 g/dL (31-35); MONOCYTES # (AUTO) 0.6 (0.2-0.8); MONOCYTES % 16.5 % (4.4-11.3); NEUTROPHILS # (AUTO) 1.4 (2.1-6.9); NEUTROPHILS % 39.2 % (38.7-80.0); PLATELET COUNT 168 x10e3/uL (140-360); RED BLOOD COUNT 4.36 x10e6/uL (3.6-5.1); RED CELL DISTRIBUTION WIDTH 15.3 % (11.7-14.4)
--- NOTE | 2019-09-27 06:33 | NUR ---
patient is resting in the bed, bed is in the lowest position and call light is within reach. No signs of pain or discomfort noted.
[2019-09-27 06:47] LABS: ANION GAP 9.9 mmol/L (8-16); BLOOD UREA NITROGEN < 5 mg/dL (7-26); CALCIUM 8.7 mg/dL (8.4-10.2); CARBON DIOXIDE 25 mmol/L (22-29); CHLORIDE 103 mmol/L (98-107); CREATININE, SERUM 0.63 mg/dL (0.57-1.11); EST GLOMERULAR FILTRATION RATE > 60 ML/MIN (60-); GLUCOSE 91 mg/dL (74-118); POTASSIUM 3.9 mmol/L (3.5-5.1); SODIUM 134 mmol/L (136-145)
[2019-09-27 06:48] LABS: BUN/CREATININE RATIO 8 (6-25)
[2019-09-27] MEDS: PANTOPRAZOLE SOD 40 MG TABEC PO SCH (08:36)
[2019-09-27] MEDS: ENALAPRIL MALEATE 10 MG TAB PO SCH (08:36)
[2019-09-27] MEDS: DOCUSATE SODIUM 100 MG CAP PO PRN (08:42)
--- NOTE | 2019-09-27 08:42 | NUR ---
PT TOLERATING CLEAR LIQUIDS AT THIS TIME, DENIES ANY PAIN, C/O NO BM, MEDICATED PER MD PRN ORDER, CALL LIGHT WITHIN REACH
[2019-09-27] MEDS ORDERED: CITRATE OF MAGNESIA 300ML BOTTLE PO ONE (15:00)
--- NOTE | 2019-09-27 16:22 | NUR ---
MD DEL ROSARIO INTO SEE PT, DISCUSSED POC, PT STATES NO BM AND PRN MED NOT WORKING, ORDERS NOTED
--- NOTE | 2019-09-27 18:22 | Progress Note ---
DATE: Medicine Progress Note I am covering for Dr. Candelaria Pedersen. SUBJECTIVE: The patient still reports having some dizziness on examination. Her sodium has improved tremendously. No overnight events. OBJECTIVE: VITAL SIGNS: Temperature is 96.5, pulse 60, respiratory rate is 18, blood pressure is 140/79, and pulse ox 97% on room air. GENERAL: Not in acute distress. Alert and oriented x3. Cooperative on examination. HEENT: Head is normocephalic and atraumatic. Eyes; pupils are equal, round, and reactive to light bilaterally. Extraocular movements intact bilaterally. Throat; no evidence of erythema or exudates in the posterior pharynx. Has poor dentition. NECK: Supple. Good range of motion. PULMONARY: Clear to auscultation bilaterally. No wheezing, rales, or rhonchi. No crackles appreciated. CARDIOVASCULAR: Positive S1, S2. No murmurs, rubs, or gallops appreciated. ABDOMEN: Soft, nondistended, and nontender to palpation. Bowel sounds present. MUSCULOSKELETAL: Strength is 5/5 throughout. No evidence of any muscle deficits on examination. No weakness appreciated. NEUROLOGIC: Cranial nerves II through XII grossly intact. No evidence of any neurological deficits on exam. SKIN: Intact. Warm to touch. Good cap refill. PSYCHIATRIC: Normal affect and mood. EXTREMITIES: No edema. Good range of motion throughout. LABORATORY FINDINGS: Show white count 3.6, hemoglobin 12, hematocrit 36, and platelets of 168. Chemistry; sodium 134, potassium 3.9, chloride 103, bicarb 25, anion gap of 9.19, BUN is 5, and creatinine 0.63, glucose 91, calcium is 8.7. CA-125 is pending. MICROBIOLOGY: None. IMAGING STUDIES: MRI of the abdomen and pelvis are still pending. IMPRESSION: 1. Lightheadedness and dizziness, secondary to hyponatremia. 2. Abdominal pain, secondary to pelvic mass. PLAN: At this time, her nausea and vomiting seems to have resolved. She is tolerating diet well. She still reports having some occasional dizziness. Pelvic mass was evaluated by CASH APPLICATIONS REPRESENTATIVE, cleared the patient for discharge, but the MRI of the pelvis and abdomen is still pending. Tylenol #3 is placed in the chart. Once the results are back from the MRI, the patient can potentially be discharged to home. I did stop the fluids. Get a.m. labs. Encourage ambulation. CA-[address] Jesse Pedersen, will be available tomorrow for possible discharge if the patient is stable. MD LINWOOD Yun/MODL /[id number]
--- NOTE | 2019-09-27 19:15 | NUR ---
received report from day nurse. patient is resting comfortably in the bed. bed is in lowest position and call light is within reach. will continue to monitor patient.
[2019-09-27] MEDS: ALBUTEROL SULFATE HFA 8GM INHALATION AEROSOL INH PRN (19:50)
--- NOTE | 2019-09-28 00:54 | Diagnostic Imaging Report ---
EXAM: MRI of the abdomen and pelvis with and without contrast. INDICATION: Abdominal/pelvic lesion. COMPARISON: CT dated 09/24/2019. TECHNIQUE: Multiplanar and multisequence imaging was performed of the abdomen and pelvis before and after administration of intravenous contrast. IV Contrast: 17 cc of MultiHance gadolinium Oral Contrast: None. Medications: None Discussion: LOWER THORAX: Unremarkable. HEPATOBILIARY: No hepatic mass. 0.9 cm left hepatic lobe T2 hyperintense nonenhancing cyst. No biliary ductal dilation. GALLBLADDER: No radio-opaque stones or sludge. No wall thickening. SPLEEN: No splenomegaly. PANCREAS: No focal masses or ductal dilatation. ADRENALS: No adrenal nodules KIDNEYS/URETERS: Kidneys enhance symmetrically. No hydronephrosis. No cystic or solid mass lesions. GI TRACT: Bowel loops are grossly unremarkable. No evidence of bowel obstruction. Colonic diverticula without evidence of diverticulitis. PELVIS: Uterus is unremarkable. T2 hyperintense, T1 hypointense cystic lesion, extending from right adnexa to the mid abdomen, measuring 13 x 9 x 10.8 cm. Peripheral enhancing solid component measures approximately 4.4 x 1.9 cm (series 24, image 20). Adjacent 3.2 x 2.2 cm lesion with fluid fluid level (series 15, image 23), probably an endometrioma. LYMPH NODES: No lymphadenopathy. VESSELS: Unremarkable. PERITONEUM / RETROPERITONEUM: No free air or fluid. BONES: Unremarkable. SOFT TISSUES: Unremarkable. IMPRESSION: Approximately 13 cm cystic lesion, arising from right adnexa with solid component, concerning for ovarian malignancy. Recommend surgical consult. Adjacent cystic lesion with fluid/fluid level, probably an endometrioma. Signed by: Dr. Kurt Villarreal MD on 09/28/2019 12:51 AM
[2019-09-28 04:00] VITALS: BP 119/62
[2019-09-28 05:27] LABS: BASOPHILS # (AUTO) 0.1 (0.0-0.1); BASOPHILS % 1.1 % (0.0-1.0); EOSINOPHILS # (AUTO) 0.2 (0.0-0.4); EOSINOPHILS % 4.7 % (0.0-6.0); HEMATOCRIT 35.8 % (34.2-44.1); HEMOGLOBIN 11.8 g/dL (12.0-16.0); LYMPHOCYTES # (AUTO) 1.6 (1.0-3.2); LYMPHOCYTES % 35.1 % (18.0-39.1); MEAN CORPUSCULAR HEMOGLOBIN 27.8 pg (28-32); MEAN CORPUSCULAR VOLUME 84.2 fL (81-99); MONOCYTES # (AUTO) 0.7 (0.2-0.8); MONOCYTES % 14.5 % (4.4-11.3); NEUTROPHILS % 44.4 % (38.7-80.0); PLATELET COUNT 177 x10e3/uL (140-360); RED BLOOD COUNT 4.25 x10e6/uL (3.6-5.1); RED CELL DISTRIBUTION WIDTH 15.5 % (11.7-14.4)
[2019-09-28 05:46] LABS: ALANINE AMINOTRANSFERASE 205 IU/L (0-55); ALBUMIN 3.6 g/dL (3.5-5.0); ALBUMIN/GLOBULIN RATIO 1.3 (0.8-2.0); ALKALINE PHOSPHATASE 109 IU/L (40-150); ANION GAP 11.3 mmol/L (8-16); BLOOD UREA NITROGEN < 5 mg/dL (7-26); CALCIUM 8.6 mg/dL (8.4-10.2); CARBON DIOXIDE 30 mmol/L (22-29); CHLORIDE 100 mmol/L (98-107); EST GLOMERULAR FILTRATION RATE > 60 ML/MIN (60-); GLUCOSE 125 mg/dL (74-118); POTASSIUM 4.3 mmol/L (3.5-5.1); SODIUM 137 mmol/L (136-145)
[2019-09-28 05:47] LABS: BUN/CREATININE RATIO 7 (6-25)
--- NOTE | 2019-09-28 06:39 | NUR ---
patient is resting in the bed, bed is in the lowest position and call light is within reach. No signs of pain or discomfort noted.
--- NOTE | 2019-09-28 07:05 | NUR ---
RECEIVED REPORT FROM CLINICAL INFORMATICIST NURSE, PATIENT AWAKE IN BED, NO DISTRESS NOTED. BED IS LOW AND LOCKED, SIDE RAILS UPX2, CALL LIGHT WITHIN REACH.
[2019-09-28 07:27] VITALS: BP_SYST 138; BP_SYST 99; BP_DIAS 62; BP_DIAS 76
[2019-09-28 08:04] VITALS: BP 138/76
[2019-09-28] MEDS: ALBUTEROL SULFATE HFA 8GM INHALATION AEROSOL INH PRN ×2 (08:12→21:05)
[2019-09-28] MEDS: SALMETEROL/FLUTICASONE 250/50 INH SCH ×2 (08:13→19:44)
[2019-09-28] MEDS: ENALAPRIL MALEATE 10 MG TAB PO SCH (09:07)
[2019-09-28] MEDS: PANTOPRAZOLE SOD 40 MG TABEC PO SCH (09:07)
[2019-09-28 11:37] VITALS: BP 108/59
--- NOTE | 2019-09-28 14:36 | Consultation ---
DATE OF CONSULTATION: HISTORY OF PRESENT ILLNESS: Thank you very much for asking me to see this 69-year-old female, who presented to the emergency room with vomiting, abdominal pain, headaches and dizziness. CT scan showed a large adnexal mass of about 15 cm, but no evidence of torsion. She denies constipation, diarrhea, or urinary tract problems. However she has mentioned that she has been vomiting and her sodium is low on admission. ALLERGIES: THE PATIENT IS ALLERGIC TO CODEINE. PAST MEDICAL HISTORY: She has a history of diabetes, hypertension, anxiety, depression, bronchial asthma. MEDICATIONS: See the list. SOCIAL HISTORY: Denies smoking or alcohol abuse. FAMILY HISTORY: Diabetes and hypertension. REVIEW OF SYSTEMS: Has been done. PHYSICAL EXAMINATION: VITAL SIGNS: Stable. CHEST: Clear to auscultation. CARDIOVASCULAR: Regular rate and rhythm. ABDOMEN: Soft, nontender. Bowel sounds are present. ASSESSMENT AND PLAN: A 69-year-old lady with a large right adnexal mass. There is no major urgency right now to do perform the procedures. The patient is quite comfortable in bed, not asking for pain management. Also her vomiting symptoms have improved dramatically and there are no signs of ovarian torsion. So, I would advise of discharging the patient and to come to the office as an outpatient for followup. Also, I recommend checking her CA-125 and we will probably be performing her surgery for removal of the mass once the moratorium on elective surgeries have been lifted. Bailey Barney MD DD/ZAIN /[id number] cc: Jesse Pedersen MD
[2019-09-28] MEDS ORDERED: DOCUSATE SODIUM 100 MG CAP PO ONE (15:15)
[2019-09-28] MEDS ORDERED: CITRATE OF MAGNESIA 300ML BOTTLE PO ONE (15:15)
--- NOTE | 2019-09-28 15:47 | NUR ---
SPOKE TO DR. RAE TO NOTIFY OF MRI RESULTS, PER DR. RAE PATIENT OK TO D/C HOME FROM HIS STANDPOINT. PATIENT TO F/U WITH HIM.
[2019-09-28 16:30] VITALS: BP 104/60
[2019-09-28 20:00] VITALS: BP 105/62
[2019-09-28] MEDS: LORAZEPAM 1 MG TAB PO PRN (22:31)
[2019-09-28] MEDS: ACETAMINOPHEN 325 MG TAB PO PRN (22:31)
--- NOTE | 2019-09-28 23:48 | Progress Note ---
DATE: 09/28/2019 Medicine Progress Note SUBJECTIVE: The patient is reportedly doing much better today. She had several complaints stating that she is lightheaded, has headache. Did report having some occasional abdominal pain. Did report having dry throat. I discussed with her she will need to follow up with FILENET ADMIN as an outpatient and she verbalized she will. I did review her MRI findings of her pelvis showing a questionable ovarian mass needing further evaluation and management. She verbalized understanding. I did use a lab courier to translate this to her. OBJECTIVE: VITAL SIGNS: Temperature is 98.7, pulse 62, respiratory rate 16, blood pressure is 104/60, pulse ox 99% on room air. GENERAL: Not in acute distress. Alert and oriented x3. Cooperative on examination. HEENT: Head is normocephalic, atraumatic. Eyes; pupils are equal, round and reactive to light bilaterally. Extraocular movements are intact bilaterally. Throat; no evidence of erythema or exudates in the posterior pharynx. Has poor dentition. NECK: Supple. Good range of motion. PULMONARY: Clear to auscultation bilaterally. No wheezing, rales, or rhonchi. No crackles appreciated. CARDIOVASCULAR: Positive S1, S2. No murmurs, rubs, or gallops appreciated. ABDOMEN: Soft, nondistended, nontender to palpation. Bowel sounds present. MUSCULOSKELETAL: Strength is 5/5 throughout. No evidence of any muscle deficits on examination. No weakness appreciated. NEUROLOGIC: Cranial nerves II through XII grossly intact. No evidence of any neurological deficits on exam. SKIN: Intact, warm to touch. Good cap refill. PSYCHIATRIC: Normal affect and mood. EXTREMITIES: No edema. Good range of motion throughout. LABORATORY FINDINGS: White count 4.4, hemoglobin 11.9, hematocrit 35.8, platelets of 177. Chemistry; sodium 137, potassium 4.3, chloride 100, bicarb 30, anion gap of 11, BUN is 5, creatinine is 0.7, glucose 125, calcium is 8.6, AST is 111, ALT 205, alk phos 109, total protein 6.4. CA-125 antigen is pending. Microbiology, none. IMAGING STUDIES: MRI of the pelvis shows a 13 cm cystic lesion arising from the right adnexal with solid component concerning for ovarian malignancy. There is an adjacent cystic lesion with fluid level, probably endometrioma. MRI of the abdomen shows similar findings as described above. IMPRESSION: 1. Lightheadedness, dizziness secondary to hyponatremia. 2. Abdominal pain-resolved. 3. Right ovarian mass/pelvic mass. PLAN: At this time, the patient reportedly is doing much better today with no complaints. We will continue with same plan of care. We will give physical therapy, occupational therapy to walk the patient across the sun. The patient reports that she is very weak. She has been in the bed for significant number of days and has not been very active at all. Her CA-125 is still pending. As per FILENET ADMIN's note, recommends discharging the patient home with outpatient followup in his office for an elective procedure. I discussed this with the patient at bedside using a lab courier and the patient verbalized understanding. The patient will be discharged home tomorrow if stable. MD LINWOOD Yun/ZAIN /[id number]
[2019-09-29] VITALS: BP 122/53
[2019-09-29 04:00] VITALS: BP 107/57
[2019-09-29 05:26] LABS: ALANINE AMINOTRANSFERASE 166 IU/L (0-55); ALBUMIN 3.4 g/dL (3.5-5.0); ALBUMIN/GLOBULIN RATIO 1.4 (0.8-2.0); ALKALINE PHOSPHATASE 109 IU/L (40-150); ANION GAP 7.3 mmol/L (8-16); BLOOD UREA NITROGEN 5 mg/dL (7-26); BUN/CREATININE RATIO 8 (6-25); CALCIUM 8.4 mg/dL (8.4-10.2); CARBON DIOXIDE 28 mmol/L (22-29); CHLORIDE 105 mmol/L (98-107); CREATININE, SERUM 0.65 mg/dL (0.57-1.11); EST GLOMERULAR FILTRATION RATE > 60 ML/MIN (60-); GLUCOSE 98 mg/dL (74-118); POTASSIUM 4.3 mmol/L (3.5-5.1); SODIUM 136 mmol/L (136-145)
--- NOTE | 2019-09-29 07:37 | NUR ---
RECEIVED REPORT FROM METEOROLOGY FACULTY MEMBER NURSE, PATIENT IS AWAKE IN BED, A&OX3, NO DISTRESS NOTED, NO COMPLAINTS, NO CONCERNS VOICED AT THIS TIME, BED IS LOW AND LOCKED, SIDE RAILS UPX2, CALL LIGHT WITHIN REACH, WILL CONTINUE TO MONITOR.
[2019-09-29 07:49] VITALS: BP 138/76
[2019-09-29 08:03] VITALS: BP 104/55
[2019-09-29] MEDS: PANTOPRAZOLE SOD 40 MG TABEC PO SCH (09:56)
[2019-09-29] MEDS: ENALAPRIL MALEATE 10 MG TAB PO SCH (10:03)
[2019-09-29] MEDS ORDERED: BISACODYL 10 MG SUPP PR ONE (10:10)
--- NOTE | 2019-09-29 11:40 | NUR ---
PATIENT C/O LOWER ABDOMINAL PAIN, OFFERED PO TYLENOL AVAILABLE. PATIENT REFUSED.
[2019-09-29 11:45] VITALS: BP 102/50
--- NOTE | 2019-09-29 12:07 | Diagnostic Imaging Report ---
TECHNIQUE: 2 frontal images of the abdomen. HISTORY: ^CONSTIPATION COMPARISON: None. IMPRESSION: Nonobstructive radiographic bowel gas pattern. No acute bony abnormality. No free air within the imaged abdomen. Signed by: Víctor Reynolds MD on 09/29/2019 12:03 PM
[2019-09-29] MEDS ORDERED: TYLENOL WITH C1 EACH PO (13:58)
[2019-09-29] MEDS ORDERED: MECLIZINE HCL12.5 MG PO (14:00)
[2019-09-29] MEDS ORDERED: ZOFRAN8 MG PO (14:01)
--- NOTE | 2019-09-29 14:20 | NUR ---
EDUCATED PATIENT ON DISCHARGE ORDERS AND PRESCRIPTIONS, PATIENT TO FOLLOW UP WITH DR RAE FOR PELVIC MASS FOLLOW UP, PATIENT TO FOLLOW UP WITH PCP IN ONE WEEK, IV TO RT. AC REMOVED, 2X2 APPLIED WITH TAPE. PATIENT TO CALL RIDE AND NOTIFY US WHEN RIDE IS HERE. BED IS LOW AND LOCKED, SIDE RAIL UPX2, CALL LIGHT WITHIN REACH.
--- NOTE | 2019-09-29 16:22 | NUR ---
PATIENT WHEELED OUT TO FRONT LOBBY VIA WHEELCHAIR FOR DISCHARGE HOME VIA PRIVATE AUTO WITH ALL BELONGINGS IN HAND, NO DISTRESS NOTED.
--- NOTE | 2019-09-29 22:27 | Discharge Summary ---
FINAL DISCHARGE DIAGNOSES: 1. Lightheadedness and dizziness secondary to hyponatremia. 2. Abdominal pain secondary to a right ovarian mass concerning for underlying malignancy. 3. Elevated CA-125. CONSULTANTS: RAIL DIRECTOR. VITAL SIGNS: Temperature is 98.1, pulse 65, respiratory rate 16, blood pressure 104/55, pulse ox 100% on room air. LABORATORY DATA: Show white count 4.4, hemoglobin 11.8, hematocrit 35, and platelets of 177. Chemistry; sodium was 136, potassium 4.3, chloride 105, bicarb 28, anion gap of 7.3, creatinine is 0.65, glucose 98, calcium is 8.4. LFTs noted. Total bilirubin is 0.4, AST 92, ALT 166, alkaline phosphatase 109, albumin 3.4. CA-125 antigen was 160. Urinalysis negative. MICROBIOLOGY: None. IMAGING STUDIES: Chest CT shows a large cystic mass identified within the pelvis measuring 13.1 cm containing an enhancing nodule, lesion in the uterus, adnexa, and urinary bladder noted. There is diverticulosis with no evidence of acute diverticulitis. No acute intrathoracic process identified. Pelvic MRI shows an approximately 13 cm cystic lesion arising from the right adnexa and a solid component concerning for ovarian malignancy. There is also adjacent cystic lesion with fluid level, probably endometrioma. Abdominal MRI shows similar findings. KUB on 09/29/2019, shows nonobstructive radiographic bowel gas pattern. No acute bony abnormality. No free air within the imaged abdomen. HOSPITAL COURSE: A 69-year-old female, came into the ED with underlying lightheadedness and dizziness. I was covering for Dr. Santino Pedersen. The patient was found to be hyponatremic, likely secondary to underlying hydrochlorothiazide diuretic. The patient improved, in which her sodium improved throughout the hospital course. She was found to have a right adnexal mass seen on imaging studies of the CT abdomen. At that time, RAIL DIRECTOR was consulted for further evaluation of this right ovarian mass. MRI of the abdomen is consistent with a right ovarian mass. CA-125 was found to be elevated. At this time, RAIL DIRECTOR states that the patient can be discharged with outpatient followup in 7 to 10 days in his office for further evaluation and management and further workup. I discussed this with the patient at bedside using a supervisor malted milk and she verbalized understanding and agrees to plan of care. Phone number, address, and information of all consultants were provided to the patient prior to being discharged. She verbalized understanding. I discussed with her the importance of followup with RAIL DIRECTOR and not to ignore this issue and to please follow up in the next 7 to 10 days and she reports verbalized understanding with a supervisor malted milk. On the day of discharge, vital signs were stable. Labs reviewed and stable. The patient is seen and evaluated and examined thoroughly on the day of discharge with no other complaints. The patient verbalized understanding and agrees to plan of care to follow up as an outpatient with PCP in 1 week and RAIL DIRECTOR in 7 to 10 days. MEDICATIONS: See med reconciliation form. DISPOSITION: Home. CONDITION: Stable. DIET: Heart healthy. In the event of any worsening symptoms, the patient was advised to come back to the ED for further evaluation. Discharge summary took greater than 35 minutes. MD LINWOOD Yun/ZAIN /[id number]
== END 2019-09-29 16:22 | disposition home or self-care (01) | DRG 641 ==
LOC: ER 11:42 → ERHOLD 18:48 → UNDOADMIN 18:48 → MED/SURG 20:50
PROVIDERS: ADMIT Internal Medicine; ATTEND Internal Medicine
DX: E87.1 Hypo-osmolality and hyponatremia (principal); K52.9 Noninfective gastroenteritis and colitis, unspecified; R19.00 Intra-abdominal and pelvic swelling, mass and lump, unspecified site; E11.9 Type 2 diabetes mellitus without complications; I10 Essential (primary) hypertension; J45.909 Unspecified asthma, uncomplicated; Z68.34 Body mass index [BMI] 34.0-34.9, adult; E66.9 Obesity, unspecified
CPT/HCPCS: 36415; 71260; 72197; 74018; 74177; 74183; 80048; 80053; 81001; 82948; 85025; 86304; 94664; 96361; 97139; 99284; J1885; J2270; J2405; J2765; J7030; J7050; Q9967

== ENCOUNTER 2019-12-01 12:07 | Emergency (ER) | payer MEDICARE ==
[~2019-12-01] VITALS: Ht 154.9 cm; Wt 81.6 kg
[~2019-12-01 12:07] MED LIST changes: +MECLIZINE HCL12.5 MG PO; +METFORMIN HCL500 MG PO; +OMEPRAZOLE40 MG PO; +TYLENOL WITH C1 EACH PO; +ZOFRAN8 MG PO
[2019-12-01 12:54] LABS: BASOPHILS % 0.8 % (0.0-1.0); EOSINOPHILS # (AUTO) 0.1 (0.0-0.4); EOSINOPHILS % 1.1 % (0.0-6.0); HEMATOCRIT 37.1 % (34.2-44.1); HEMOGLOBIN 12.1 g/dL (12.0-16.0); LYMPHOCYTES # (AUTO) 1.8 (1.0-3.2); LYMPHOCYTES % 33.5 % (18.0-39.1); MEAN CORPUSCULAR HGB CONC 32.6 g/dL (31-35); MEAN CORPUSCULAR VOLUME 82.8 fL (81-99); MONOCYTES # (AUTO) 0.5 (0.2-0.8); MONOCYTES % 8.9 % (4.4-11.3); NEUTROPHILS # (AUTO) 2.9 (2.1-6.9); NEUTROPHILS % 55.5 % (38.7-80.0); PLATELET COUNT 205 x10e3/uL (140-360); RED BLOOD COUNT 4.48 x10e6/uL (3.6-5.1); RED CELL DISTRIBUTION WIDTH 14.1 % (11.7-14.4)
[2019-12-01 13:21] LABS: ALANINE AMINOTRANSFERASE 17 IU/L (0-55); ALBUMIN/GLOBULIN RATIO 1.1 (0.8-2.0); ALKALINE PHOSPHATASE 99 IU/L (40-150); ANION GAP 15.6 mmol/L (8-16); BLOOD UREA NITROGEN 9 mg/dL (7-26); BUN/CREATININE RATIO 13 (6-25); CARBON DIOXIDE 20 mmol/L (22-29); CHLORIDE 103 mmol/L (98-107); CREATINE KINASE 50 IU/L (29-168); CREATININE, SERUM 0.68 mg/dL (0.57-1.11); EST GLOMERULAR FILTRATION RATE > 60 ML/MIN (60-); GLUCOSE 110 mg/dL (74-118); POTASSIUM 3.6 mmol/L (3.5-5.1); SODIUM 135 mmol/L (136-145)
[2019-12-01] MEDS ORDERED: SODIUM CHLORIDE 0.9% 50ML 50 ML ONE (13:40)
[2019-12-01] MEDS ORDERED: IOPAMIDOL 370 MG/ML 200 ML INFUS..BTL INJ ONE (13:40)
--- NOTE | 2019-12-01 15:10 | Diagnostic Imaging Report ---
EXAMINATION: CT of the abdomen and pelvis with contrast. TECHNIQUE: Spiral CT images of the abdomen and pelvis were performed from the lung bases to the lesser trochanters after the intravenous administration of 100 cc of Isovue 370 and the oral administration of water. Coronal and sagittal reformatted images were obtained. COMPARISON: MRI abdomen and pelvis 09/25/2019 CLINICAL HISTORY:Abdominal pain, left lower quadrant tumor DISCUSSION: ABDOMEN/PELVIS: LOWER THORAX:Unremarkable. HEPATOBILIARY: Stable 1.0 cm fluid density simple cyst in segment II (series 2, image 11). No other focal lesions. No intra or extrahepatic biliary ductal dilation. GALLBLADDER: No radio-opaque stones or sludge. No wall thickening. SPLEEN: No splenomegaly. PANCREAS: No focal masses or ductal dilatation. ADRENALS: No adrenal nodules. KIDNEYS/URETERS: No hydronephrosis, stones, or solid mass lesions. PELVIC ORGANS/BLADDER: Bladder is unremarkable. Uterus is unremarkable. Interval increase in size of 15.3 x 11.6 x 15.3 cm predominantly fluid density thin-walled right adnexal/ovarian mass which previously measured approximately 13.0 x 9.2 x 12.4 cm). This mass occupies the right anterior portion of the pelvis and lower abdomen, with enhancing components in its peripheral inferior aspect (series 2, image 62). PERITONEUM/RETROPERITONEUM: No free air or fluid. LYMPH NODES: No intra-abdominal, retroperitoneal, pelvic or inguinal lymphadenopathy. VESSELS: The celiac trunk,superior and inferior mesenteric and bilateral renal arteries are patent The portal, superior mesenteric and splenic veins are patent. GI TRACT: No bowel dilation or evidence of obstruction. No pericolonic inflammatory changes. Descending and sigmoid colon diverticulosis, without diverticulitis. BONES AND SOFT TISSUE: No aggressive lytic or suspicious focal sclerotic lesions. Facet hypertrophy L5-S1. Fat-containing umbilical hernia. IMPRESSION: 1. No acute abdominopelvic abnormalities. No bowel dilation or evidence of obstruction. 2. Interval increase in size of complex cystic lesion in the right adnexa/ovary/anterior pelvis/lower abdomen, suspicious for cystic ovarian neoplasm. Recommend CENTRAL SERVICE TECHNICIAN consultation for evaluation. Signed by: Dr. Felix Melendez M.D. on 12/01/2019 3:07 PM
--- NOTE | 2019-12-01 18:59 | Emergency Department Note ---
History of Present Illnes History of Present Illness Chief Complaint: Abdominal Complaints History of Present Illness This is a 69 year old female arrives to the ED with complaints of left lower quadrant pain. Patient states she knows she has a tumor the need to removed but the pain was worse today and she wanted to see if it can be removed . Chief Complaint Comment per ems pt has ovarian tumor called [address] kim said he would take it out but unable to get pre op testing done so sx postponed given 100 mcg fentanyl by ems en route to hospital c/o LLQ pain x 3 days Historian: Patient Arrival Mode: [facility] [employer]ist Fitter Required: No Severity: mild Onset quality: gradual Duration (how long): day(s) Timing of current episode: constant Progression: unchanged Chronicity: recurrent Context: Reports recent illness Past Medical/Family History Physician Review I have reviewed the patient's past medical and family history. Any updates have been documented here. Past Medical History Recent Fever: No Clinical Suspicion of Infectio: No New/Unexplained Change in Ment: No Past Medical History: Hypertension, Diabetes, Asthma, Hyperlipedemia Other Medical History: HIGH CHOLESTEROL Past Surgical History: None Social History Smoking Cessation: Never Smoker Counseling Performed: No Alcohol Use: None Any Illegal Drug Use: No TB Exposure/Symptoms: No Physically hurt or threatened: No Other Last Tetanus: UNK Any Pre-Existing Lines (PICC,: No Is patient up to date on immun: Yes Last Flu: utd Last Pneumovax: utd Review of Systems Review of Systems Constitutional: Reports no symptoms EENTM: Reports no symptoms Cardiovascular: Reports no symptoms Respiratory: Reports no symptoms Gastrointestinal: Reports as per HPI, Reports abdominal pain, Reports constipation Genitourinary: Reports no symptoms Musculoskeletal: Reports no symptoms Integumentary: Reports no symptoms Neurological: Reports no symptoms Psychological: Reports no symptoms Endocrine: Reports no symptoms Hematological/Lymphatic: Reports no symptoms Physical Exam Related Data Allergies: Coded Allergies: codeine (Verified Allergy, Unknown, 07/23/16) Triage Vital Signs Vital Signs Date Time Temp Pulse Resp B/P (MAP) Pulse Ox O2 Delivery O2 Flow Rate FiO2 12/01/19 12:16 96.7 80 18 169/88 99 Vital signs reviewed: Yes Physical Exam CONSTITUTIONAL Constitutional: Present well-developed, Present well-nourished, Present obese HENT HENT: Present normocephalic, Present atraumatic, Present oropharynx clear/moist, Present nose normal HENT L/R: Present left ext ear normal, Present right ext ear normal EYES Eyes: Reports PERRL, Reports conjunctivae normal NECK Neck: Present ROM normal PULMONARY Pulmonary: Present effort normal, Present breath sounds normal CARDIOVASCULAR Cardiovascular: Present regular rhythm, Present heart sounds normal, Present capillary refill normal, Present normal rate GASTROINTESTINAL Abdominal: Present soft, Present nontender, Present bowel sounds normal GENITOURINARY Genitourinary: Present exam deferred SKIN Skin: Present warm, Present dry MUSCULOSKELETAL Musculoskeletal: Present ROM normal NEUROLOGICAL Neurological: Present alert, Present oriented x 3, Present no gross motor or sensory deficits PSYCHOLOGICAL Psychological: Present mood/affect normal, Present judgement normal Results Laboratory Result Diagram: 12/01/19 1226 12/01/19 1226 Laboratory Laboratory Tests Test 12/01/19 12:26 White Blood Count 5.26 x10e3/uL (4.8-10.8) Red Blood Count 4.48 x10e6/uL (3.6-5.1) Hemoglobin 12.1 g/dL (12.0-16.0) Hematocrit 37.1 % (34.2-44.1) Mean Corpuscular Volume 82.8 fL (81-99) Mean Corpuscular Hemoglobin 27.0 pg (28-32) Mean Corpuscular Hemoglobin Concent 32.6 g/dL (31-35) Red Cell Distribution Width 14.1 % (11.7-14.4) Platelet Count 205 x10e3/uL (140-360) Neutrophils (%) (Auto) 55.5 % (38.7-80.0) Lymphocytes (%) (Auto) 33.5 % (18.0-39.1) Monocytes (%) (Auto) 8.9 % (4.4-11.3) Eosinophils (%) (Auto) 1.1 % (0.0-6.0) Basophils (%) (Auto) 0.8 % (0.0-1.0) Neutrophils # (Auto) 2.9 (2.1-6.9) Lymphocytes # (Auto) 1.8 (1.0-3.2) Monocytes # (Auto) 0.5 (0.2-0.8) Eosinophils # (Auto) 0.1 (0.0-0.4) Basophils # (Auto) 0.0 (0.0-0.1) Absolute Immature Granulocyte (auto 0.01 x10e3/uL (0-0.1) Sodium Level 135 mmol/L (136-145) Potassium Level 3.6 mmol/L (3.5-5.1) Chloride Level 103 mmol/L (98-107) Carbon Dioxide Level 20 mmol/L (22-29) Anion Gap 15.6 mmol/L (8-16) Blood Urea Nitrogen 9 mg/dL (7-26) Creatinine 0.68 mg/dL (0.57-1.11) Estimat Glomerular Filtration Rate > 60 ML/MIN (60-) BUN/Creatinine Ratio 13 (6-25) Glucose Level 110 mg/dL (74-118) Calcium Level 9.0 mg/dL (8.4-10.2) Total Bilirubin 0.4 mg/dL (0.2-1.2) Aspartate Amino Transf (AST/SGOT) 19 IU/L (5-34) Alanine Aminotransferase (ALT/SGPT) 17 IU/L (0-55) Alkaline Phosphatase 99 IU/L (40-150) Creatine Kinase 50 IU/L (29-168) Creatine Kinase MB 0.60 ng/mL (0-5.0) Troponin I 0.016 ng/mL (0-0.300) Total Protein 7.6 g/dL (6.5-8.1) Albumin 4.0 g/dL (3.5-5.0) Globulin 3.6 g/dL (2.3-3.5) Albumin/Globulin Ratio 1.1 (0.8-2.0) Lipase 20 U/L (8-78) Lab results reviewed: Yes Imaging Imaging results reviewed: Yes Imaging Comments IMPRESSION: 1. No acute abdominopelvic abnormalities. No bowel dilation or evidence of obstruction. 2. Interval increase in size of complex cystic lesion in the right adnexa/ovary/anterior pelvis/lower abdomen, suspicious for cystic ovarian neoplasm. Recommend DITCHER OPERATOR consultation for evaluation. Signed by: Dr. Felix Melendez M.D. on 12/01/2019 3:07 PM Assessment & Plan Medical Decision Making MDM 69-year-old female arrived to the ED with complaints of left lower quadrant abdominal pain. Patient with a known history of ovarian tumor/mass. Patient is pending a resection of her ovarian mass. CT scan done in the ED is consistent with a mass, no indications for acute surgical removal at this time. Patient has outpatient follow with ASSISTANT ASSOCIATE PROFESSOR. Patient discharged home confirming her ASSISTANT ASSOCIATE PROFESSOR follow- up. Assessment & Plan Final Impression: (1) Ovarian mass, left Depart Disposition: HOME, SELF-CARE Last Vital Signs Date Time Temp Pulse Resp B/P (MAP) Pulse Ox O2 Delivery O2 Flow Rate FiO2 12/01/19 12:16 96.7 80 18 169/88 99 Home Meds Reported Medications Ondansetron Hcl (ZOFRAN) 8 Mg Tablet, 4 MG PO Q8H PRN for PRN 09/29/19 Meclizine Hcl (MECLIZINE HCL) 12.5 Mg Tablet, 25 MG PO Q8HR PRN for DIZZINESS, TAB 09/29/19 Acetaminophen With Codeine (TYLENOL WITH CODEINE #3 TABLET) 1 Each Tablet, 300 MG PO PRN for PAIN, TAB 09/29/19 Metformin Hcl (METFORMIN HCL) 500 Mg Tablet, 500 MG PO BID, #60 TAB 09/24/19 Omeprazole (OMEPRAZOLE) 40 Mg Capsule.dr, 40 MG PO DAILY 09/24/19 Enalapril Maleate (Enalapril Maleate) 10 Mg Tablet, 10 MG PO DAILY 10/26/11 Pravastatin Sodium (Pravastatin Sodium) 40 Mg Tablet, 40 MG PO DAILY 10/26/11 Fluticasone/Salmeterol (Advair 250-50 Diskus) 1 Each Disk.w.dev, 1 EACH IH BID 10/26/11 Albuterol Sulfate (PROAIR HFA) 8.5 Gm Hfa.aer.ad, 0.9 MG qidprn 10/26/11 Medications in the ED Sodium Chloride 50 ml @ ud STK-MED ONCE .ROUTE ; Start 12/01/19 at 13:40; Stop 12/01/19 at 13:35; Status DC Iopamidol 74,000 mg STK-MED ONCE INJ ; Start 12/01/19 at 13:40; Stop 12/01/19 at 13:35; Status DC HAMLET ALATORRE, Dec 01, 2019 19:16
== END 2019-12-01 16:56 | disposition home or self-care (01) ==
LOC: ER 12:07
DX: R10.32 Left lower quadrant pain (principal); R19.04 Left lower quadrant abdominal swelling, mass and lump; I10 Essential (primary) hypertension; E11.9 Type 2 diabetes mellitus without complications; E78.5 Hyperlipidemia, unspecified; J45.909 Unspecified asthma, uncomplicated
CPT/HCPCS: 36415; 74177; 80053; 82550; 82553; 83690; 84484; 85025; 99283; Q9967

== ENCOUNTER 2020-07-15 12:57 | Inpatient (IN) | payer MEDICARE, OTHER ==
[~2020-07-15] VITALS: Ht 152.4 cm; Wt 95.3 kg
[2020-07-15] MEDS ORDERED: ASPIRIN 81 MG CHEW TAB PO ONE (13:15)
[2020-07-15 14:31] LABS: BASOPHILS % 1.1 % (0.0-1.0); EOSINOPHILS % 0.3 % (0.0-6.0); HEMATOCRIT 36.4 % (34.2-44.1); HEMOGLOBIN 11.6 g/dL (12.0-16.0); LYMPHOCYTES # (AUTO) 1.1 (1.0-3.2); LYMPHOCYTES % 27.9 % (18.0-39.1); MEAN CORPUSCULAR HEMOGLOBIN 27.6 pg (28-32); MEAN CORPUSCULAR HGB CONC 31.9 g/dL (31-35); MEAN CORPUSCULAR VOLUME 86.7 fL (81-99); MONOCYTES # (AUTO) 0.7 (0.2-0.8); MONOCYTES % 17.6 % (4.4-11.3); NEUTROPHILS % 52.8 % (38.7-80.0); PLATELET COUNT 250 x10e3/uL (140-360); RED CELL DISTRIBUTION WIDTH 16.2 % (11.7-14.4)
[2020-07-15 14:47] LABS: ALANINE AMINOTRANSFERASE 715 IU/L (0-55); ALBUMIN 4.1 g/dL (3.5-5.0); ALBUMIN/GLOBULIN RATIO 1.1 (0.8-2.0); ALKALINE PHOSPHATASE 228 IU/L (40-150); ANION GAP 13.1 mmol/L (8-16); BLOOD UREA NITROGEN 8 mg/dL (7-26); BUN/CREATININE RATIO 12 (6-25); CALCIUM 9.2 mg/dL (8.4-10.2); CARBON DIOXIDE 25 mmol/L (22-29); CHLORIDE 102 mmol/L (98-107); CREATINE KINASE 52 IU/L (29-168); CREATININE, SERUM 0.68 mg/dL (0.57-1.11); EST GLOMERULAR FILTRATION RATE > 60 ML/MIN (60-); GLUCOSE 103 mg/dL (74-118); POTASSIUM 4.1 mmol/L (3.5-5.1); SODIUM 136 mmol/L (136-145)
[2020-07-15 16:00] VITALS: BP 147/71
[2020-07-15 16:15] VITALS: BP 147/71
[2020-07-15] MEDS ORDERED: ELIQUIS5 MG PO (18:41)
[2020-07-15] MEDS ORDERED: LOSARTAN POTAS100 MG PO (18:42)
[2020-07-15] MEDS ORDERED: AMLODIPINE BESYL5 MG PO (18:42)
[2020-07-15] MEDS ORDERED: BEVESPI AEROS10.7 GM IH (18:42)
[2020-07-15] MEDS ORDERED: XOPENEX1.25 MG/3 INH (18:43)
[2020-07-15] MEDS ORDERED: ALBUTEROL SULFATE HFA 8GM INHALATION AEROSOL INH PRN (19:15)
[2020-07-15] MEDS ORDERED: LEVALBUTEROL HCL SOLN NEBU 1.25 MG/3 ML NEB INH PRN ×2 (19:15→19:45)
[2020-07-15 20:00] VITALS: BP 111/74
[2020-07-15 20:20] VITALS: BP 147/71
[2020-07-16] VITALS (8 sets, daily range): BP systolic 112–140; BP diastolic 42–94
[2020-07-16 00:14] LABS: CREATINE KINASE 49 IU/L (29-168)
[2020-07-16] MEDS ORDERED: ALBUTEROL/IPRATROPIUM 3 ML NEB NEB PRN (00:30)
[2020-07-16] MEDS ORDERED: DEXTROSE 50% SYRINGE 50 ML IV PRN ×2 (00:30→11:15)
[2020-07-16] MEDS ORDERED: MELATONIN 5 MG TABLET PO PRN (00:30)
[2020-07-16] MEDS ORDERED: DIPHENHYDRAMINE HCL 25 MG CAP PO PRN (00:30)
[2020-07-16] MEDS ORDERED: HYDRALAZINE HCL 20 MG/ML VIAL IV PRN (00:30)
[2020-07-16] MEDS ORDERED: SIMETHICONE 80 MG CHEW PO PRN (00:30)
[2020-07-16] MEDS ORDERED: POTASSIUM CHLORIDE 20 MEQ TAB CR PO PRN (00:30)
[2020-07-16] MEDS ORDERED: BENZONATATE 100 MG CAP PO PRN (00:30)
[2020-07-16] MEDS ORDERED: IBUPROFEN 600 MG TAB PO PRN (00:30)
[2020-07-16] MEDS ORDERED: ONDANSETRON HCL INJ 2MG/ML 2ML 2 MG/ML VIAL IV PRN (00:30)
[2020-07-16 06:11] LABS: BASOPHILS % 1.1 % (0.0-1.0); EOSINOPHILS # (AUTO) 0.1 (0.0-0.4); EOSINOPHILS % 1.4 % (0.0-6.0); LYMPHOCYTES # (AUTO) 1.3 (1.0-3.2); LYMPHOCYTES % 37.1 % (18.0-39.1); MEAN CORPUSCULAR HEMOGLOBIN 28.2 pg (28-32); MEAN CORPUSCULAR HGB CONC 32.4 g/dL (31-35); MEAN CORPUSCULAR VOLUME 87.2 fL (81-99); MONOCYTES # (AUTO) 0.7 (0.2-0.8); MONOCYTES % 20.6 % (4.4-11.3); NEUTROPHILS # (AUTO) 1.4 (2.1-6.9); NEUTROPHILS % 39.8 % (38.7-80.0); PLATELET COUNT 216 x10e3/uL (140-360); RED CELL DISTRIBUTION WIDTH 16.3 % (11.7-14.4)
[2020-07-16 06:36] LABS: CREATINE KINASE 42 IU/L (29-168)
[2020-07-16 06:55] LABS: ALANINE AMINOTRANSFERASE 535 IU/L (0-55); ALBUMIN 3.4 g/dL (3.5-5.0); ALBUMIN/GLOBULIN RATIO 0.9 (0.8-2.0); ALKALINE PHOSPHATASE 175 IU/L (40-150); ANION GAP 11.2 mmol/L (8-16); BLOOD UREA NITROGEN 9 mg/dL (7-26); BUN/CREATININE RATIO 14 (6-25); CALCIUM 8.5 mg/dL (8.4-10.2); CARBON DIOXIDE 23 mmol/L (22-29); CHLORIDE 106 mmol/L (98-107); CREATININE, SERUM 0.65 mg/dL (0.57-1.11); EST GLOMERULAR FILTRATION RATE > 60 ML/MIN (60-); GLUCOSE 107 mg/dL (74-118); MAGNESIUM 1.8 MG/DL (1.3-2.1); PHOSPHORUS 3.7 MG/DL (2.3-4.7); POTASSIUM 4.2 mmol/L (3.5-5.1); SODIUM 136 mmol/L (136-145)
[2020-07-16] MEDS: FORMOTEROL FUM INH SCH ×2 (07:00→19:00)
[2020-07-16] MEDS: [UNRECOGNIZED DRUG - OTHER] INH SCH ×2 (07:00→19:00)
[2020-07-16] MEDS: GLYCOPYRROLATE INH SCH ×2 (07:00→19:00)
[2020-07-16] MEDS ORDERED: METFORMIN HCL 500 MG TAB PO SCH (08:00)
[2020-07-16] MEDS: PANTOPRAZOLE SOD 40 MG TABEC PO SCH (08:55)
[2020-07-16] MEDS: APIXABAN 5 MG TABLET PO SCH ×2 (08:56→17:29)
[2020-07-16] MEDS: LOSARTAN POTASSIUM 100 MG TAB PO SCH (08:56)
[2020-07-16] MEDS: LIDOCAINE 4% PATCH TP PRN (08:57)
[2020-07-16] MEDS ORDERED: AMLODIPINE BESYLATE 5 MG TAB PO SCH (09:00)
[2020-07-16] MEDS ORDERED: MAALOX/LIDOCAINE/BENADRYL/NYST 30 ML BTL PO PRN (11:15)
[2020-07-16 14:42] LABS: CREATINE KINASE 44 IU/L (29-168)
[2020-07-16] MEDS: AMLODIPINE BESYLATE 5 MG TAB PO SCH (17:29)
[2020-07-16 18:08] LABS: ALBUMIN 3.7 g/dL (3.5-5.0); BILIRUBIN,DIRECT 0.2 mg/dL (0.0-0.5)
[2020-07-16] MEDS ORDERED: SODIUM CHLORIDE 0.9% IV SCH (21:00)
[2020-07-16] MEDS ORDERED: GANCICLOVIR SODIUM IV SCH (21:00)
[2020-07-17] VITALS (8 sets, daily range): BP systolic 93–138; BP diastolic 58–92
[2020-07-17 06:21] LABS: BASOPHILS # (AUTO) 0.1 (0.0-0.1); BASOPHILS % 1.7 % (0.0-1.0); EOSINOPHILS # (AUTO) 0.1 (0.0-0.4); EOSINOPHILS % 2.7 % (0.0-6.0); HEMATOCRIT 34.3 % (34.2-44.1); HEMOGLOBIN 11.3 g/dL (12.0-16.0); LYMPHOCYTES # (AUTO) 1.2 (1.0-3.2); LYMPHOCYTES % 40.1 % (18.0-39.1); MEAN CORPUSCULAR HEMOGLOBIN 28.5 pg (28-32); MEAN CORPUSCULAR HGB CONC 32.9 g/dL (31-35); MEAN CORPUSCULAR VOLUME 86.6 fL (81-99); MONOCYTES # (AUTO) 0.6 (0.2-0.8); MONOCYTES % 18.5 % (4.4-11.3); NEUTROPHILS # (AUTO) 1.1 (2.1-6.9); NEUTROPHILS % 36.7 % (38.7-80.0); PLATELET COUNT 221 x10e3/uL (140-360); RED BLOOD COUNT 3.96 x10e6/uL (3.6-5.1); RED CELL DISTRIBUTION WIDTH 16.3 % (11.7-14.4)
[2020-07-17 06:42] LABS: INR 1.02
[2020-07-17 06:58] LABS: ALANINE AMINOTRANSFERASE 474 IU/L (0-55); ALBUMIN 3.5 g/dL (3.5-5.0); ALBUMIN/GLOBULIN RATIO 0.9 (0.8-2.0); ALKALINE PHOSPHATASE 161 IU/L (40-150); BLOOD UREA NITROGEN 9 mg/dL (7-26); BUN/CREATININE RATIO 14 (6-25); CALCIUM 8.3 mg/dL (8.4-10.2); CARBON DIOXIDE 22 mmol/L (22-29); CHLORIDE 107 mmol/L (98-107); CREATININE, SERUM 0.65 mg/dL (0.57-1.11); EST GLOMERULAR FILTRATION RATE > 60 ML/MIN (60-); GLUCOSE 113 mg/dL (74-118); SODIUM 138 mmol/L (136-145)
[2020-07-17] MEDS: GLYCOPYRROLATE INH SCH ×2 (07:00→19:00)
[2020-07-17] MEDS: [UNRECOGNIZED DRUG - OTHER] INH SCH ×2 (07:00→19:00)
[2020-07-17] MEDS: FORMOTEROL FUM INH SCH ×2 (07:00→19:00)
[2020-07-17] MEDS: LOSARTAN POTASSIUM 100 MG TAB PO SCH (09:00)
[2020-07-17] MEDS: APIXABAN 5 MG TABLET PO SCH ×2 (09:00→17:09)
[2020-07-17] MEDS: PANTOPRAZOLE SOD 40 MG TABEC PO SCH (09:00)
[2020-07-17] MEDS: AMLODIPINE BESYLATE 5 MG TAB PO SCH (17:08)
[2020-07-17] MEDS: DOCUSATE SODIUM 100 MG CAP PO PRN (17:09)
[2020-07-17] MEDS: POLYETHYLENE GLYCOL 3350 17 GM PACK PO PRN (17:09)
[2020-07-18] VITALS (8 sets, daily range): BP systolic 92–121; BP diastolic 57–70
[2020-07-18 06:22] LABS: BASOPHILS # (AUTO) 0.1 (0.0-0.1); BASOPHILS % 1.4 % (0.0-1.0); EOSINOPHILS # (AUTO) 0.1 (0.0-0.4); EOSINOPHILS % 1.7 % (0.0-6.0); HEMATOCRIT 32.2 % (34.2-44.1); HEMOGLOBIN 10.5 g/dL (12.0-16.0); LYMPHOCYTES # (AUTO) 1.3 (1.0-3.2); MEAN CORPUSCULAR HEMOGLOBIN 28.5 pg (28-32); MEAN CORPUSCULAR HGB CONC 32.6 g/dL (31-35); MEAN CORPUSCULAR VOLUME 87.3 fL (81-99); MONOCYTES # (AUTO) 0.6 (0.2-0.8); NEUTROPHILS # (AUTO) 1.4 (2.1-6.9); NEUTROPHILS % 40.9 % (38.7-80.0); PLATELET COUNT 213 x10e3/uL (140-360); RED BLOOD COUNT 3.69 x10e6/uL (3.6-5.1)
[2020-07-18 07:00] LABS: ALANINE AMINOTRANSFERASE 386 IU/L (0-55); ALBUMIN 3.4 g/dL (3.5-5.0); ALBUMIN/GLOBULIN RATIO 0.9 (0.8-2.0); ALKALINE PHOSPHATASE 145 IU/L (40-150); ANION GAP 12.1 mmol/L (8-16); BLOOD UREA NITROGEN 11 mg/dL (7-26); BUN/CREATININE RATIO 18 (6-25); CALCIUM 8.2 mg/dL (8.4-10.2); CARBON DIOXIDE 23 mmol/L (22-29); CHLORIDE 106 mmol/L (98-107); CREATININE, SERUM 0.61 mg/dL (0.57-1.11); EST GLOMERULAR FILTRATION RATE > 60 ML/MIN (60-); GLUCOSE 109 mg/dL (74-118); POTASSIUM 4.1 mmol/L (3.5-5.1); SODIUM 137 mmol/L (136-145)
[2020-07-18] MEDS: LIDOCAINE 4% PATCH TP PRN (10:11)
[2020-07-18] MEDS: PANTOPRAZOLE SOD 40 MG TABEC PO SCH (10:29)
[2020-07-18] MEDS: SODIUM CHLORIDE 0.9% IV SCH ×2 (10:30→21:32)
[2020-07-18] MEDS: APIXABAN 5 MG TABLET PO SCH ×2 (10:30→17:55)
[2020-07-18] MEDS: LOSARTAN POTASSIUM 100 MG TAB PO SCH (10:30)
[2020-07-18] MEDS: GANCICLOVIR SODIUM IV SCH ×2 (10:30→21:32)
[2020-07-18] MEDS: AMLODIPINE BESYLATE 5 MG TAB PO SCH (10:30)
[2020-07-18] MEDS ORDERED: SODIUM CHLORIDE 0.9% 100 ML ONE (10:32)
[2020-07-18] MEDS: DOCUSATE SODIUM 100 MG CAP PO PRN (18:04)
[2020-07-18] MEDS: POLYETHYLENE GLYCOL 3350 17 GM PACK PO PRN (18:04)
[2020-07-19] VITALS (8 sets, daily range): BP systolic 89–139; BP diastolic 56–85
[2020-07-19] MEDS: PANTOPRAZOLE SOD 40 MG TABEC PO SCH (08:40)
[2020-07-19] MEDS: LOSARTAN POTASSIUM 100 MG TAB PO SCH (08:41)
[2020-07-19] MEDS: AMLODIPINE BESYLATE 5 MG TAB PO SCH (08:41)
[2020-07-19] MEDS: APIXABAN 5 MG TABLET PO SCH ×2 (08:41→17:02)
[2020-07-19] MEDS: GANCICLOVIR SODIUM IV SCH ×2 (08:41→21:07)
[2020-07-19] MEDS: SODIUM CHLORIDE 0.9% IV SCH ×2 (08:41→21:07)
[2020-07-19 14:15] LABS: ALANINE AMINOTRANSFERASE 326 IU/L (0-55); ALBUMIN 3.5 g/dL (3.5-5.0); ALBUMIN/GLOBULIN RATIO 0.9 (0.8-2.0); ALKALINE PHOSPHATASE 138 IU/L (40-150); ANION GAP 10.9 mmol/L (8-16); BLOOD UREA NITROGEN 12 mg/dL (7-26); BUN/CREATININE RATIO 17 (6-25); CALCIUM 8.2 mg/dL (8.4-10.2); CARBON DIOXIDE 23 mmol/L (22-29); CHLORIDE 105 mmol/L (98-107); CREATININE, SERUM 0.69 mg/dL (0.57-1.11); EST GLOMERULAR FILTRATION RATE > 60 ML/MIN (60-); GLUCOSE 157 mg/dL (74-118); POTASSIUM 3.9 mmol/L (3.5-5.1); SODIUM 135 mmol/L (136-145)
[2020-07-19] MEDS ORDERED: ONDANSETRON HCL 4 MG ORAL DISINTEGRATING TAB PO PRN (18:00)
[2020-07-19] MEDS: DOCUSATE SODIUM 100 MG CAP PO PRN (23:00)
[2020-07-20] VITALS: BP 113/57
[2020-07-20 04:00] VITALS: BP 103/61
[2020-07-20 06:11] LABS: BASOPHILS # (AUTO) 0.1 (0.0-0.1); BASOPHILS % 1.5 % (0.0-1.0); EOSINOPHILS % 1.2 % (0.0-6.0); HEMATOCRIT 34.3 % (34.2-44.1); LYMPHOCYTES # (AUTO) 1.3 (1.0-3.2); LYMPHOCYTES % 37.1 % (18.0-39.1); MEAN CORPUSCULAR HEMOGLOBIN 28.1 pg (28-32); MEAN CORPUSCULAR HGB CONC 32.1 g/dL (31-35); MEAN CORPUSCULAR VOLUME 87.7 fL (81-99); MONOCYTES # (AUTO) 0.7 (0.2-0.8); NEUTROPHILS # (AUTO) 1.3 (2.1-6.9); NEUTROPHILS % 37.9 % (38.7-80.0); PLATELET COUNT 189 x10e3/uL (140-360); RED BLOOD COUNT 3.91 x10e6/uL (3.6-5.1); RED CELL DISTRIBUTION WIDTH 15.9 % (11.7-14.4)
[2020-07-20 06:39] LABS: ALANINE AMINOTRANSFERASE 280 IU/L (0-55); ALBUMIN 3.4 g/dL (3.5-5.0); ALBUMIN/GLOBULIN RATIO 0.9 (0.8-2.0); ALKALINE PHOSPHATASE 140 IU/L (40-150); ANION GAP 12.2 mmol/L (8-16); BLOOD UREA NITROGEN 14 mg/dL (7-26); BUN/CREATININE RATIO 21 (6-25); CALCIUM 8.3 mg/dL (8.4-10.2); CARBON DIOXIDE 24 mmol/L (22-29); CHLORIDE 106 mmol/L (98-107); CREATININE, SERUM 0.66 mg/dL (0.57-1.11); EST GLOMERULAR FILTRATION RATE > 60 ML/MIN (60-); GLUCOSE 111 mg/dL (74-118); POTASSIUM 4.2 mmol/L (3.5-5.1); SODIUM 138 mmol/L (136-145)
[2020-07-20] MEDS: GLYCOPYRROLATE INH SCH (07:00)
[2020-07-20] MEDS: FORMOTEROL FUM INH SCH (07:00)
[2020-07-20] MEDS: [UNRECOGNIZED DRUG - OTHER] INH SCH (07:00)
[2020-07-20 07:44] VITALS: BP 131/91
[2020-07-20] MEDS: LOSARTAN POTASSIUM 100 MG TAB PO SCH (09:10)
[2020-07-20] MEDS: PANTOPRAZOLE SOD 40 MG TABEC PO SCH (09:10)
[2020-07-20] MEDS: APIXABAN 5 MG TABLET PO SCH (09:11)
[2020-07-20] MEDS: POLYETHYLENE GLYCOL 3350 17 GM PACK PO PRN (09:11)
[2020-07-20] MEDS: AMLODIPINE BESYLATE 5 MG TAB PO SCH (09:11)
[2020-07-20] MEDS: GANCICLOVIR SODIUM IV SCH (09:21)
[2020-07-20] MEDS: SODIUM CHLORIDE 0.9% IV SCH (09:21)
[2020-07-20 11:48] VITALS: BP 131/91
[2020-07-20 11:55] VITALS: BP 114/69
[2020-07-20 15:58] VITALS: BP 106/65
== END 2020-07-20 18:13 | disposition home or self-care (01) | DRG 442 ==
LOC: ER 13:04 → ERHOLD 13:43 → MED/SURG3 15:42
PROVIDERS: ADMIT Internal Medicine; ATTEND Internal Medicine
DX: B25.1 Cytomegaloviral hepatitis (principal); C56.9 Malignant neoplasm of unspecified ovary; D70.1 Agranulocytosis secondary to cancer chemotherapy; Z92.21 Personal history of antineoplastic chemotherapy; Z20.822 Contact with and (suspected) exposure to COVID-19; Z86.711 Personal history of pulmonary embolism; Z79.01 Long term (current) use of anticoagulants; E11.9 Type 2 diabetes mellitus without complications; T45.1X5A Adverse effect of antineoplastic and immunosuppressive drugs, initial encounter
CPT/HCPCS: 36415; 76700; 80053; 80076; 82550; 82553; 82948; 83690; 83735; 84100; 84484; 85025; 85610; 86644; 86645; 99283; J7050; U0002

== ENCOUNTER → 2020-09-29 | Outpatient (CLI) | payer OTHER, MEDICARE ==
[~2020-09-29] MED LIST changes: +AMLODIPINE BESYL5 MG PO; +BEVESPI AEROS10.7 GM IH; +ELIQUIS5 MG PO; +LOSARTAN POTAS100 MG PO; +XOPENEX1.25 MG/3 INH
== END ==
LOC: MAMMO 08:59
PROVIDERS: ATTEND Internal Medicine
DX: Z12.31 Encounter for screening mammogram for malignant neoplasm of breast (principal); M85.88 Other specified disorders of bone density and structure, other site; S73.102A Unspecified sprain of left hip, initial encounter; S73.101A Unspecified sprain of right hip, initial encounter
CPT/HCPCS: 77067; 77080

== ENCOUNTER → 2021-07-25 | Outpatient (CLI) | payer MEDICARE, OTHER | LOC: RAD 11:01 | PROVIDERS: ATTEND Internal Medicine | DX: S33.5XXA Sprain of ligaments of lumbar spine, initial encounter (principal) | CPT/HCPCS: 72110 ==

== ENCOUNTER → 2022-09-18 | Outpatient (CLI) | payer MEDICARE, OTHER | LOC: MAMMO 11:46 | PROVIDERS: ATTEND Internal Medicine | DX: Z12.31 Encounter for screening mammogram for malignant neoplasm of breast (principal) | CPT/HCPCS: 77067 ==

== ENCOUNTER → 2022-09-21 | Outpatient (CLI) | payer MEDICARE, OTHER | LOC: RAD 11:07 | PROVIDERS: ATTEND Internal Medicine | DX: R07.89 Other chest pain (principal) | CPT/HCPCS: 71046 ==

== ENCOUNTER → 2022-10-12 | Outpatient (CLI) | payer MEDICARE, OTHER ==
[~2022-10-12] MED LIST changes: +DIATRIZOATE MEGL/DIATRIZOA SOD 30 ML BTL PO ONE; +IOPAMIDOL 370 MG/ML 100 ML INFUS..BTL INJ ONE
[2022-10-12 11:28] LABS: CREATININE, SERUM 0.75 mg/dL (0.57-1.11)
== END ==
LOC: CT 10:24
PROVIDERS: ATTEND Surgery
DX: R10.32 Left lower quadrant pain (principal)
CPT/HCPCS: 36415; 72193; 82565; 84520; Q9963; Q9967

== ENCOUNTER → 2022-12-07 | Outpatient (CLI) | payer MEDICARE, OTHER ==
[~2022-12-07] MED LIST changes: -DIATRIZOATE MEGL/DIATRIZOA SOD 30 ML BTL PO ONE; -IOPAMIDOL 370 MG/ML 100 ML INFUS..BTL INJ ONE
== END ==
LOC: RAD 10:13
PROVIDERS: ATTEND Internal Medicine
DX: M79.671 Pain in right foot (principal)

== ENCOUNTER → 2024-04-14 | Outpatient (REF) | payer MEDICARE, OTHER | LOC: EDSTATUS 09:00 → RESP 09:20 | PROVIDERS: ATTEND Internal Medicine | DX: R06.02 Shortness of breath (principal); C56.9 Malignant neoplasm of unspecified ovary; R91.1 Solitary pulmonary nodule; J42 Unspecified chronic bronchitis; J45.909 Unspecified asthma, uncomplicated; E66.9 Obesity, unspecified; G47.33 Obstructive sleep apnea (adult) (pediatric); Z87.891 Personal history of nicotine dependence; Z86.711 Personal history of pulmonary embolism | CPT/HCPCS: 94060; 94727; 94729 ==

== ENCOUNTER → 2024-09-10 | Outpatient (REF) | payer MEDICARE, OTHER | LOC: CT 11:23 | PROVIDERS: ATTEND Internal Medicine | DX: G43.609 Persistent migraine aura with cerebral infarction, not intractable, without status migrainosus (principal) | CPT/HCPCS: 70450 ==

== ENCOUNTER → 2025-02-22 | Outpatient (REF) | payer MEDICARE, OTHER | LOC: MAMMO 09:29 | PROVIDERS: ATTEND Internal Medicine | DX: Z12.31 Encounter for screening mammogram for malignant neoplasm of breast (principal) | CPT/HCPCS: 77067 ==